=== PATIENT | male | born 1950 | race Caucasian/White ===

== ENCOUNTER → 2017-07-08 | Outpatient (CLI) | payer MEDICARE, OTHER ==
[~2017-07-08] VITALS: Ht 185.4 cm; Wt 108.9 kg
[~2017-07-08] MED LIST: ASP81CT GT; ASP81CT PO; ASPI-892 PO; CATHETER FLUSH 10 ML SYR IV PRN; FAMO40TA39 PO; NF-ESOM40C PO; PANT40TA PO; REGADENOSON 0.4 MG/5 ML SYR (LEXISCAN) IV ONE; SMV20T PO; SUCR1TAB36 PO
[2017-07-08 08:49] VITALS: BP 138/78
== END ==
LOC: CARD 07:21
PROVIDERS: ATTEND Internal Medicine Cardiovascular Disease
DX: I25.10 Atherosclerotic heart disease of native coronary artery without angina pectoris (principal); I65.23 Occlusion and stenosis of bilateral carotid arteries; E78.4 Other hyperlipidemia; R06.09 Other forms of dyspnea; Z72.0 Tobacco use
CPT/HCPCS: 78452; 93017

== ENCOUNTER 2018-01-14 05:33 | Outpatient (CLI) | payer MEDICARE, OTHER ==
[~2018-01-14] VITALS: Ht 193 cm; Wt 107.0 kg
[~2018-01-14 05:33] MED LIST changes: -CATHETER FLUSH 10 ML SYR IV PRN; -REGADENOSON 0.4 MG/5 ML SYR (LEXISCAN) IV ONE
[2018-01-14] MEDS ORDERED: ASPI-586 PO (14:55)
[2018-01-14] MEDS ORDERED: PANT40TA3 PO (14:55)
[2018-01-14] MEDS ORDERED: SIMV20TA3 PO (14:55)
[2018-01-14] MEDS ORDERED: FAMO20TA3 PO (14:55)
== END 2018-01-14 14:57 ==
LOC: PREOP 05:33
PROVIDERS: ATTEND Surgery
DX: Z01.818 Encounter for other preprocedural examination (principal)

== ENCOUNTER 2018-01-19 08:48 | Day surgery (SDC) | payer MEDICARE, OTHER ==
[~2018-01-19] VITALS: Ht 193 cm; Wt 107.0 kg
[~2018-01-19 08:48] MED LIST changes: +ASPI-586 PO; +FAMO20TA3 PO; +PANT40TA3 PO; +SIMV20TA3 PO
--- OUTSIDE RECORDS SUMMARY | 2018-01-19 08:56 | XMS REPORT | Continuity of Care Document ---
Author Author [facility] Organization [facility] Address Unknown Phone Unavailable Allergies Active Description Code Type Severity Reaction Onset Reported/Identified Relationship to Patient Clinical Status Yes NO KNOWN DRUG ALLERGIES UNKNOWN NO KNOWN DRUG ALLERG Yes atenolol [id number] Drug Allergy Unknown N/A 02/05/2009 Yes guaifenesin [id number] Drug Allergy Unknown N/A 02/05/2009 Medications There is no data. Problems Date Dx Coded Attending Type Code Diagnosis Diagnosed By 05/24/2013 BRIAN MARIE MD, Ot 455.0 INT HEMORRHOID W/O COMPL 05/24/2013 BRIAN MARIE MD Ot 455.3 EXT HEMORRHOID W/O COMPL 05/24/2013 BRIAN MARIE MD Ot 530.11 REFLUX ESOPHAGITIS 05/24/2013 BRIAN MARIE MD Ot 535.50 UNSP GASTRITIS GASTRODUODENITIS W/O ME 05/24/2013 BRIAN MARIE MD Ot 553.3 DIAPHRAGMATIC HERNIA 05/24/2013 BRIAN MARIE MD Ot 562.10 DIVERTICULOSIS COLON (W/O MENT OF HEMORR 05/24/2013 BRIAN MARIE MD Ot V76.51 SCREEN MAL NEOP-COLON 09/13/2014 MATT KEARNS FACC, DELFINO FACP CCDS Ot 272.4 HYPERLIPIDEMIA NEC/NOS 09/13/2014 MATT KEARNS FACC, ALI FACP CCDS Ot 305.1 TOBACCO USE DISORDER 09/13/2014 MATT KEARNS FACC, DELFINO FACP CCDS Ot 414.01 CORONARY ATHEROSCLEROSIS OF [place] CORON 09/13/2014 MATT KEARNS FACC, DELFINO FACP CCDS Ot 455.6 HEMORRHOIDS NOS 09/13/2014 MATT KEARNS FACC, DELFINO FACP CCDS Ot 530.10 ESOPHAGITIS NOS 09/13/2014 MATT KEARNS FACC, DELFINO FACP CCDS Ot 530.81 ESOPHAGEAL REFLUX 09/13/2014 MATT KEARNS FACC, ALI FACP CCDS Ot 786.59 CHEST PAIN NEC 12/02/2015 MATT KEARNS FACC, ALI FACP CCDS Ot E78.4 OTHER HYPERLIPIDEMIA 12/02/2015 MATT KEARNS FACC, ALI FACP CCDS Ot I25.10 ATHSCL HEART DISEASE OF [place] CORONARY 12/02/2015 MATT KEARNS FACC, ALI FACP CCDS Ot I65.23 OCCLUSION AND STENOSIS OF [place] 12/02/2015 MATT KEARNS FACC, ALI FACP CCDS Ot Z72.0 TOBACCO USE 12/18/2015 MATT KEARNS FACC, ALI FACP CCDS Ot E78.4 OTHER HYPERLIPIDEMIA 12/18/2015 MATT KEARNS FACC, ALI FACP CCDS Ot I25.10 ATHSCL HEART DISEASE OF [place] CORONARY 12/18/2015 MATT KEARNS FACC, ALI FACP CCDS Ot I65.23 OCCLUSION AND STENOSIS OF [place] 12/18/2015 MATT KEARNS FACC, ALI FACP CCDS Ot Z72.0 TOBACCO USE 01/08/2016 MATT KEARNS FACC, ALI FACP CCDS Ot E78.4 OTHER HYPERLIPIDEMIA 01/08/2016 MATT KEARNS FACC, ALI FACP CCDS Ot I25.10 ATHSCL HEART DISEASE OF [place] CORONARY 01/08/2016 MATT KEARNS FAC, ALI FACP CCDS Ot I65.23 OCCLUSION AND STENOSIS OF [place] 01/08/2016 MATT BLACKWOOD, ALI FACP CCDS Ot Z72.0 TOBACCO USE 02/29/2016 GEORGINA LAUGHLIN DO Ot K21.9 GASTRO-ESOPHAGEAL REFLUX DISEASE WITHOUT 02/29/2016 GEORGINA LAUGHLIN DO Ot R07.89 OTHER CHEST PAIN 02/29/2016 GEORGINA LAUGHLIN DO Ot R10.13 EPIGASTRIC PAIN 03/02/2016 GEORGINA LAUGHLIN DO Ot K21.9 GASTRO-ESOPHAGEAL REFLUX DISEASE WITHOUT 03/02/2016 GEORGINA LAUGHLIN DO Ot R07.89 OTHER CHEST PAIN 03/02/2016 GEORGINA LAUGHLIN DO Ot R10.13 EPIGASTRIC PAIN 03/02/2016 GEORGINA LAUGHLIN DO Ot K21.9 GASTRO-ESOPHAGEAL REFLUX DISEASE WITHOUT 03/02/2016 GEORGINA LAUGHLIN DO Ot R07.89 OTHER CHEST PAIN 03/02/2016 GEORGINA LAUGHLIN DO Ot R10.13 EPIGASTRIC PAIN 07/08/2017 MATT MD FACC, ALI FACP CCDS Ot E78.4 OTHER HYPERLIPIDEMIA 07/08/2017 MATT KEARNS FACC, ALI FACP CCDS Ot I25.10 ATHSCL HEART DISEASE OF [place] CORONARY 07/08/2017 MATT KEARNS FACC, ALI FACP CCDS Ot I65.23 OCCLUSION AND STENOSIS OF [place] 07/08/2017 MATT KEARNS FACC, ALI FACP CCDS Ot Z72.0 TOBACCO USE 07/09/2017 MATT KEARNS FACC, ALI FACP CCDS Ot E78.4 OTHER HYPERLIPIDEMIA 07/09/2017 MATT KEARNS FACC, ALI FACP CCDS Ot I25.10 ATHSCL HEART DISEASE OF [place] CORONARY 07/09/2017 MATT KEARNS FACC, ALI FACP CCDS Ot I65.23 OCCLUSION AND STENOSIS OF [place] 07/09/2017 MATT KEARNS FACC, ALI FACP CCDS Ot R06.09 OTHER FORMS OF DYSPNEA 07/09/2017 MATT KEARNS FACC, ALI FACP CCDS Ot Z72.0 TOBACCO USE 07/29/[address] [facility], ALI FACP CCDS Ot E78.4 OTHER HYPERLIPIDEMIA 07/29/[address] [facility], ALI FACP CCDS Ot I25.10 ATHSCL HEART DISEASE OF [place] CORONARY 07/29/2017 MATT KEARNS FAC, ALI FACP CCDS Ot I65.23 OCCLUSION AND STENOSIS OF [place] 07/29/2017 MATT KEARNS FAC, ALI FACP CCDS Ot R06.09 OTHER FORMS OF DYSPNEA 07/29/2017 MATT KEARNS FAC, ALI FACP CCDS Ot Z72.0 TOBACCO USE 08/26/2017 MATT BLACKWOOD, ALI FACP CCDS Ot E78.4 OTHER HYPERLIPIDEMIA 08/26/[address] [facility], ALI FACP CCDS Ot I25.10 ATHSCL HEART DISEASE OF [place] CORONARY 08/26/[address] [facility], ALI FACP CCDS Ot I65.23 OCCLUSION AND STENOSIS OF [place] 08/26/[address] [facility], ALI FACP CCDS Ot R06.09 OTHER FORMS OF DYSPNEA 08/26/2017 MATT KEARNS FACC, ALI FACP CCDS Ot Z72.0 TOBACCO USE Procedures There is no data. Results There is no data. Encounters ACCT No. Visit Date/Time Discharge Status Pt. Type Provider Facility Loc./Unit Complaint [id number] 07/08/2017 07:21:00 07/08/2017 23:59:59 CLS Outpatient MATT KEARNS FACC, ALI FACP CCDS [facility] CARD WENDY, R06.09 [id number] 02/28/2016 23:11:00 02/29/2016 00:40:00 DIS Emergency GEORGINA LAUGHLIN DO [facility] ER CHEST PAIN [id number] 11/28/2015 07:44:00 11/28/2015 23:59:59 CLS Outpatient MATT KEARNS FACC, ALI FACP CCDS [facility] CARD CAD,HPL, [id number] 09/13/2014 04:10:00 09/13/2014 12:00:00 DIS Inpatient MATT KEARNS FACC, ALI FACP CCDS [facility] CSD CHEST PAIN [id number] 05/24/2013 08:50:00 05/24/2013 12:20:00 DIS Outpatient BRIAN MARIE MD [facility] SCREENING; HX BARRETTS [id number] 05/18/2013 07:16:00 05/18/2013 23:59:59 CLS Outpatient [id number] 09/15/2014 17:18:37 ACT Document Registration [id number] 07/07/2017 00:00:00 07/07/2017 23:59:00 DIS Outpatient Eveline Berry
[2018-01-19] MEDS ORDERED: NS IV 500 ML 500 ML IV PRN (09:28)
[2018-01-19] MEDS ORDERED: FLUMAZENIL (ROMAZICON) 0.1 MG/ML 5 ML VIAL INJ PRN (09:30)
[2018-01-19] MEDS ORDERED: HURRICAINE EXT TUBE (BENZOCAINE) XX PRN (09:30)
[2018-01-19] MEDS ORDERED: LIDOCAINE JELLY 2% (XYLOCAINE) 5 ML TUBE MM PRN (09:30)
[2018-01-19] MEDS ORDERED: NALOXONE 0.4 MG/ML 1 ML (NARCAN) VIAL IVP PRN (09:30)
[2018-01-19] MEDS ORDERED: NS IV 500 ML 500 ML ONE (09:45)
[2018-01-19 09:55] VITALS: BP 129/74
[2018-01-19] MEDS ORDERED: fentaNYL INJECTION 100 MCG/2 ML AMP ONE (10:14)
[2018-01-19] MEDS ORDERED: MIDAZOLAM 2 MG/2 ML (VERSED) VIAL ONE ×3 (10:14)
[2018-01-19] MEDS ORDERED: LIDOCAINE JELLY 2% (XYLOCAINE) 5 ML TUBE ONE (10:14)
[2018-01-19] MEDS ORDERED: HURRICAINE EXT TUBE (BENZOCAINE) ONE (10:14)
[2018-01-19] MEDS: fentaNYL INJECTION 100 MCG/2 ML AMP IVP PRN ×2 (10:43→10:50)
[2018-01-19] MEDS: MIDAZOLAM 2 MG/2 ML (VERSED) VIAL IVP PRN ×2 (10:44→10:51)
--- NOTE | 2018-01-19 10:51 | Conscious Sedation/ASA ---
Conscious Sedation Pre-Proced Time Reviewed: 10:00 ASA Class: 2 Airway Mallampati Classification: ([place] appropriate class) I. II. III, IV Lungs Heart ASA score ASA 1: a normal healthy patient ASA 2: a patient with a mild systemic disease (mid diabetes, controlled hypertension, obesity ASA 3: a patient with a severe systemic disease that limits activity (angina , COPD, prior Myocardial infarction) ASA 4: a patient with an incapacitating disease that is a constant threat to life (CHF, renal failure) ASA 5: a moribund patient not expected to survive 24 hrs. (ruptured aneurysm) ASA 6: a declared brain patient whose organs are being harvested. For emergent operations, add the letter E after the classification Grade 2 Sedation Plan: Analgesia, Amnesia, Plan communicated to team members, Discussed options with patient/fam, Discussed risks with patient/fam Note The patient is an appropriate candidate to undergo the planned procedure, sedation, and anesthesia. The patient immediately re-assessed prior to indication. BRIAN MARIE MD Jan 19, 2018 10:51 am
--- NOTE | 2018-01-19 10:52 | Progress Note-Pre Operative ---
Pre-Operative Progress Note H&P Reviewed The H&P was reviewed, patient examined and no changes noted. Date Seen by Provider: Jan 19, 2018 Time Seen by Provider: 10:00 Date H&P Reviewed: Jan 19, 2018 Time H&P Reviewed: 10:00 Pre-Operative Diagnosis: BRIAN Morejon MD Jan 19, 2018 10:52 am
[2018-01-19] MEDS ORDERED: morphine INJ 10 MG/ML 1ML (SYR OR VIAL) IV PRN (11:00)
[2018-01-19] MEDS ORDERED: ACETAMINOPHEN 325 MG TABLET/CAPLET (TYLENOL) PO PRN (11:00)
[2018-01-19] MEDS ORDERED: HYDROcodone/APAP 5 MG/325 MG (LORTAB) TAB PO PRN (11:00)
[2018-01-19] MEDS ORDERED: ONDANSETRON 4 MG/2 ML (SDV) Z0FRAN IV PRN (11:00)
[2018-01-19 11:35] VITALS: BP 127/68
--- NOTE | 2018-01-19 11:42 | Progress Note-Post Operative ---
Post-Operative Progess Note Surgeon (s)/Car Wash Manager (s) Surgeon BRIAN MARIE MD Car Wash Manager: none Pre-Operative Diagnosis hx [place] Post-Operative Diagnosis reflux esophagitis(class B), small HH(1.5-2cm), moderate gastritis. Procedure & Operative Findings Date of Procedure 01/19/18 Procedure Performed/Findings EGD with bx Anesthesia Type CS Estimated Blood Loss Estimated blood loss (mL): minimal Specimens/Packing Specimens Removed antrum, GE jxn BRIAN MARIE MD Jan 19, 2018 11:42 am
--- NOTE | 2018-01-19 11:44 | Discharge Inst-Surgical ---
D/C Lap Instructions-CYNTHIA Will call for Follow Up Activity as tolerated High Fiber Diet 25g or more per day Avoid Alcohol, Caffeine, Spicy [place] and Acid foods. Drink 64 fluid oz or more of fluids per day. Symptoms to Report: Fever over 101 degree F, Nausea/Vomiting If any problems/questions: Contact your physician or go to Emergency Room BRIAN MARIE MD Jan 19, 2018 11:44 am
[2018-01-19 12:00] VITALS: BP 123/64
[2018-01-19 12:05] VITALS: BP 123/64
--- NOTE | 2018-01-19 17:46 | OPERATIVE REPORT ---
DATE OF SERVICE: 01/19/2018 ATTENDING PRIMARY CARE PHYSICIAN: Dr. Berry. PREOPERATIVE DIAGNOSIS: History of Miles's esophagus. POSTOPERATIVE DIAGNOSES: Reflux esophagitis class B, small hiatal hernia approximately 1.5 cm in size. Moderate gastritis. PROCEDURE: EGD with biopsy. SURGEON: Brian Marie MD ANESTHESIA: Conscious sedation. ESTIMATED BLOOD LOSS: Minimal. FINDINGS: Reflux esophagitis class B, small hiatal hernia approximately 1.5 cm in size, mild to moderate gastritis. No formal ulcers, polyps or any neoplasms. Pylorus and duodenum appeared normal. DISPOSITION: The patient tolerated the procedure well. INDICATIONS: The patient is a 67-year-old male with history of Miles's esophagus. In 2012, he underwent an EGD and colonoscopy with findings of reflux esophagitis class B and a small to moderate size hiatal hernia approximately 2.5 cm in size. Biopsies were positive for Miles's esophagus. Since that time, he states that he has been doing well. He does have occasional episodes of epigastric discomfort; however, this is not a new problem. DESCRIPTION OF PROCEDURE: The patient was brought to the endoscopy suite, laid in the left lateral decubitus position. After adequate IV pain and sedative medications and conscious sedation anesthesia, the mouthpiece was applied. The endoscope was placed in the mouth, visualizing the pharynx and hypopharyngeal region. Vocal cords, epiglottis and vallecula identified and appeared to be normal. The endoscope was then intubated into the esophageal opening and esophagus insufflated. The endoscope was then advanced through the first, second and third portion of the esophagus at the level of the GE junction, a reflux esophagitis class B identified. There were no ulcers or strictures identified in this region. A biopsy was taken with forceps with visualization of good hemostasis. The endoscope was then advanced into the stomach and the endoscope retroflexed, visualizing a small hiatal hernia approximately 1.5 to 2 cm in size. There was some mild to moderate gastritis. No formal ulcerations, polyps or any neoplasms identified. A biopsy was taken of the antrum with forceps with visualization of good hemostasis. The endoscope was then advanced to the pylorus into the first and second portion of duodenum, which appeared normal with no distal obstructions. The endoscope was then slowly withdrawn while taking a second look and suctioning residual air with no additional findings. The patient tolerated the procedure well. We will have him continue with medical management with the necessary lifestyle and diet accommodation including small and more frequent meals, avoiding to eating at night as well as head elevation while lying supine. He also has significant risk factors including chewing tobacco, which we will recommend discontinuing. We will await the biopsy results. Job ID: [id number] DocumentID: [id number] Dictated Date: 01/19/2018 11:29:54 Fitness And Wellness Instructor Date: 01/19/2018 17:45:42 Dictated By: BRIAN MARIE MD MTDD
== END 2018-01-19 12:05 | disposition home or self-care (01) ==
LOC: ENDO 08:48
PROVIDERS: ATTEND Surgery
DX: K21.0 Gastro-esophageal reflux disease with esophagitis (principal); K44.9 Diaphragmatic hernia without obstruction or gangrene; K29.70 Gastritis, unspecified, without bleeding; E78.00 Pure hypercholesterolemia, unspecified; I25.10 Atherosclerotic heart disease of native coronary artery without angina pectoris; Z77.098 Contact with and (suspected) exposure to other hazardous, chiefly nonmedicinal, chemicals
CPT/HCPCS: 88305

== ENCOUNTER 2018-05-25 06:30 | Outpatient (CLI) | payer MEDICARE, OTHER ==
[~2018-05-25] VITALS: Ht 190.5 cm; Wt 106.6 kg
== END 2018-05-25 14:59 | disposition home or self-care (01) ==
LOC: PREOP 06:30
PROVIDERS: ATTEND Specialist
DX: Z01.818 Encounter for other preprocedural examination (principal)

== ENCOUNTER 2018-05-27 07:46 | Day surgery (SDC) | payer MEDICARE, OTHER ==
[~2018-05-27] VITALS: Ht 190.5 cm; Wt 106.6 kg
--- OUTSIDE RECORDS SUMMARY | 2018-05-27 07:52 | XMS REPORT | Continuity of Care Document ---
Author Author [facility] Organization [facility] Address Unknown Phone Unavailable Allergies Active Description Code Type Severity Reaction Onset Reported/Identified Relationship to Patient Clinical Status Yes NO KNOWN DRUG ALLERGIES UNKNOWN NO KNOWN DRUG ALLERG Yes atenolol [id number] Drug Allergy Unknown N/A 02/05/2009 Yes guaifenesin [id number] Drug Allergy Unknown N/A 02/05/2009 Medications There [...] FACP CCDS Ot 414.01 CORONARY ATHEROSCLEROSIS OF [place] CORON 09/13/2014 MATT KEARNS FACC, DELFINO FACP [...] CCDS Ot I25.10 ATHSCL HEART DISEASE OF [place] CORONARY 12/02/2015 MATT KEARNS FACC, ALI FACP CCDS Ot I65.23 OCCLUSION AND STENOSIS OF [place] 12/02/2015 MATT KEARNS FACC, ALI FACP CCDS Ot Z72.0 TOBACCO USE 12/18/2015 MATT KEARNS FACC, ALI FACP CCDS Ot E78.4 OTHER HYPERLIPIDEMIA 12/18/2015 MATT KEARNS FACC, ALI FACP CCDS Ot I25.10 ATHSCL HEART DISEASE OF [place] CORONARY 12/18/2015 MATT KEARNS FACC, ALI FACP CCDS Ot I65.23 OCCLUSION AND STENOSIS OF [place] 12/18/2015 MATT KEARNS FACC, ALI FACP CCDS Ot Z72.0 TOBACCO USE 01/08/2016 MATT KEARNS FACC, ALI FACP CCDS Ot E78.4 OTHER HYPERLIPIDEMIA 01/08/2016 MATT KEARNS FACC, ALI FACP CCDS Ot I25.10 ATHSCL HEART DISEASE OF [place] CORONARY 01/08/2016 MATT KEARNS FAC, ALI FACP [...] CCDS Ot I25.10 ATHSCL HEART DISEASE OF [place] CORONARY 07/08/2017 MATT KEARNS FACC, ALI FACP CCDS Ot I65.23 OCCLUSION AND STENOSIS OF [place] 07/08/2017 MATT KEARNS FACC, ALI FACP CCDS Ot Z72.0 TOBACCO USE 07/09/2017 MATT KEARNS FACC, ALI FACP CCDS Ot E78.4 OTHER HYPERLIPIDEMIA 07/09/2017 MATT KEARNS FACC, ALI FACP CCDS Ot I25.10 ATHSCL HEART DISEASE OF [place] CORONARY 07/09/2017 MATT KEARNS FACC, ALI FACP CCDS Ot I65.23 OCCLUSION AND STENOSIS OF [place] 07/09/2017 MATT KEARNS FACC, ALI FACP CCDS Ot R06.09 OTHER FORMS OF DYSPNEA 07/09/2017 MATT KEARNS FACC, ALI FACP CCDS Ot Z72.0 TOBACCO USE 07/29/2017 MATT KEARNS FACC, ALI FACP CCDS Ot E78.4 OTHER HYPERLIPIDEMIA 07/29/2017 MATT KEARNS FACC, ALI FACP CCDS Ot I25.10 ATHSCL HEART DISEASE OF [place] CORONARY 07/29/2017 MATT KEARNS FACC, ALI FACP CCDS Ot I65.23 OCCLUSION AND STENOSIS OF [place] 07/29/2017 MATT KEARNS FACC, ALI FACP CCDS Ot R06.09 OTHER FORMS OF DYSPNEA 07/29/2017 MATT KEARNS FACC, ALI FACP CCDS Ot Z72.0 TOBACCO USE 08/26/2017 MATT KEARNS FACC, ALI FACP CCDS Ot E78.4 OTHER HYPERLIPIDEMIA 08/26/2017 MATT BLACKWOODC, ALI FACP CCDS Ot I25.10 ATHSCL HEART DISEASE OF [place] CORONARY 08/26/2017 MATT KEARNS FACC, ALI FACP CCDS Ot I65.23 OCCLUSION AND STENOSIS OF [place] 08/26/2017 MATT KEARNS FACC, ALI FACP CCDS Ot R06.09 OTHER FORMS OF DYSPNEA 08/26/2017 MATT KEARNS FACC, ALI FACP CCDS Ot Z72.0 TOBACCO USE 01/17/2018 MATT KEARNS FACC, ALI FACP CCDS Ot E78.4 OTHER HYPERLIPIDEMIA 01/17/2018 MATT BLACKWOODC, ALI FACP CCDS Ot I25.10 ATHSCL HEART DISEASE OF [place] CORONARY 01/17/2018 MATT KEARNS FACC, ALI FACP CCDS Ot I65.23 OCCLUSION AND STENOSIS OF [place] 01/17/2018 MATT KEARNS FACC, ALI FACP CCDS Ot Z72.0 TOBACCO USE 01/17/2018 MATT KEARNS FACC, ALI FACP CCDS Ot E78.4 OTHER HYPERLIPIDEMIA 01/17/2018 MATT KEARNS FACC, ALI FACP CCDS Ot I25.10 ATHSCL HEART DISEASE OF [place] CORONARY 01/17/2018 MATT KEARNS FAC, ALI FACP CCDS Ot I65.23 OCCLUSION AND STENOSIS OF [place] 01/17/2018 MATT KEARNS FAC, ALI FACP CCDS Ot R06.09 OTHER FORMS OF DYSPNEA 01/17/2018 MATT KEARNS FAC, ALI FACP CCDS Ot Z72.0 TOBACCO USE 01/17/2018 BRIAN MARIE MD, Ot Z01.818 ENCOUNTER FOR OTHER PREPROCEDURAL EXAMIN 01/19/2018 BRIAN MARIE MD Ot E78.00 PURE HYPERCHOLESTEROLEMIA, UNSPECIFIED 01/19/2018 BRIAN MARIE MD, Ot I25.10 ATHSCL HEART DISEASE OF [place] CORONARY 01/19/2018 BRIAN MARIE MD, Ot K21.0 GASTRO-ESOPHAGEAL REFLUX DISEASE WITH ES 01/19/2018 BRIAN MARIE MD, Ot K29.70 GASTRITIS, UNSPECIFIED, WITHOUT BLEEDING 01/19/2018 BRIAN MARIE MD, Ot K44.9 DIAPHRAGMATIC HERNIA WITHOUT OBSTRUCTION 01/19/2018 BRIAN MARIE MD, Ot Z77.098 CONTACT W AND EXPSR TO OTH HAZARD, CHIEF 01/21/2018 BRIAN MARIE MD, Ot E78.00 PURE HYPERCHOLESTEROLEMIA, UNSPECIFIED 01/21/2018 BRIAN MARIE MD, Ot I25.10 ATHSCL HEART DISEASE OF [place] CORONARY 01/21/2018 BRIAN MARIE MD, Ot K21.0 GASTRO-ESOPHAGEAL REFLUX DISEASE WITH ES 01/21/2018 BRIAN MARIE MD, Ot K29.70 GASTRITIS, UNSPECIFIED, WITHOUT BLEEDING 01/21/2018 BRIAN MARIE MD, Ot K44.9 DIAPHRAGMATIC HERNIA WITHOUT OBSTRUCTION 01/21/2018 BRIAN MARIE MD, Ot Z77.098 CONTACT W AND EXPSR TO [facility] [place], CHIEF Procedures There is no data. Results There is no data. Encounters ACCT No. Visit Date/Time Discharge Status Pt. Type Provider Facility Loc./Unit Complaint [id number] 01/19/2018 08:48:00 01/19/2018 12:05:00 DIS Outpatient BRIAN MARIE MD [facility] ENDO HX SINGLETON'S [id number] 01/14/2018 05:33:00 01/14/2018 14:57:00 DIS Outpatient BRIAN MARIE MD [facility] PREOP EGD [id number] 07/08/2017 07:21:00 07/08/2017 23:59:59 CLS Outpatient MATT KEARNS FACC, ALI FACP CCDS [facility] CARD NGUYEN, R06.09 [id number] 02/28/2016 23:11:00 02/29/2016 00:40:00 DIS Emergency GEORGINA LAUGHLIN DO [facility] ER CHEST PAIN [id number] 11/28/2015 07:44:00 11/28/2015 23:59:59 CLS Outpatient MATT KEARNS FACC, ALI FACP CCDS [facility] CARD CAD,HPL, [id number] 09/13/2014 04:10:00 09/13/2014 12:00:00 DIS Inpatient MATT KEARNS FACC, ALI FACP CCDS [facility] CSD CHEST PAIN [id number] 05/24/2013 08:50:00 05/24/2013 12:20:00 DIS [facility] HX [place] [id number] 05/18/2013 07:16:00 05/18/2013 23:59:59 CLS Outpatient [id number] 06/07/2018 09:00:00 PEN Preadmit RASTA CARRILLO MD [facility] CATARACT RIGHT EYE [id number] 05/27/2018 09:30:00 PEN Preadmit RSATA CARRILLO MD [facility] CATARACT LEFT [id number] 09/15/2014 17:18:37 ACT Document Registration [id number] 07/07/2017 00:00:00 07/07/2017 23:59:00 DIS Outpatient Eveline Berry
[2018-05-27] MEDS ORDERED: LIDOCAINE PF 1% 2 ML AMP IR PRN (08:00)
[2018-05-27] MEDS ORDERED: POVIDONE (BETADINE) OPHTH SOLN 5% 30 ML OP ONE (08:00)
[2018-05-27] MEDS ORDERED: BSS 15 ML IR PRN (08:00)
[2018-05-27] MEDS ORDERED: MOXIFLOXACIN OPHTH SOLN 5 MG/ML 0.3 ML SYRINGE OP ONE (08:00)
[2018-05-27] MEDS ORDERED: TIMOLOL MALEATE 0.5% 5 ML (TIMOPTIC) BTL OU PRN (08:00)
[2018-05-27] MEDS ORDERED: EPINEPHrine INJECTION 1 MG/ML AMP INJ ONE (08:00)
[2018-05-27] MEDS: TETRACAINE 0.5% OPHTH SOLN 4 ML BTL (SINGLE DOSE ONLY) OU PRN ×4 (08:06→08:22)
[2018-05-27 08:09] VITALS: BP 124/63
[2018-05-27] MEDS: CYCLOPENTOLATE 1% (CYCLOGYL) 2 ML DROPS OP SCH ×3 (08:13→08:22)
[2018-05-27] MEDS: PHENYLEPHRINE 10% OPHTH (NEO-SYN) 5 ML BTL OU SCH ×3 (08:13→08:22)
[2018-05-27] MEDS ORDERED: MIDAZOLAM 2 MG/2 ML (VERSED) VIAL ONE (08:28)
--- NOTE | 2018-05-27 08:46 | Ophthalmologist Pre-Op Note ---
Pre-Operative Progress Note H&P Reviewed The H&P was reviewed, patient examined and no changes noted. Date H&P Reviewed: May 27, 2018 Time H&P Reviewed: 08:46 Pre-Op Dx Cataract, Left Eye RASTA CARRILLO MD May 27, 2018 08:46
--- NOTE | 2018-05-27 09:10 | Ophthalmology Operative Report ---
Cataract removal/placement IOL PREOPERATIVE DIAGNOSIS: Cataract Left Eye POSTOPERATIVE DIAGNOSIS: Cataract Left Eye PROCEDURE: Cataract removal and placement of posterior chamber implant, left eye SURGEON: John Carrillo ANESTHESIA: Topical with sedation COMPLICATIONS: None ESTIMATED BLOOD LOSS: Minimal DESCRIPTION OF PROCEDURE: After proper informed consent was obtained, the patient, a 67 male, was taken to the Operating Room and the left eye was anesthetized with tetracaine. The left eye was then prepped and draped in the usual manner. A wire lid speculum was placed. A paracentesis was made at the left hand position. Preservative free lidocaine was injected into the anterior chamber followed by viscoelastic. A clear corneal incision was made in the temporal position. A capsulorrhexis was preformed and the central nuclear and cortical material were removed. The posterior capsule was polished and an Bertram 19.5 [id number] was placed into the capsular bag. The residual viscoelastic was aspirated and balanced saline solution was injected into the anterior chamber. Moxifloxacin was injected into the anterior chamber. The wound was checked and found to be water tight. The patient tolerated the procedure well without complications. JOHN CARRILLO MD May 27, 2018 09:10
[2018-05-27 09:25] VITALS: BP 139/69
[2018-05-27] MEDS ORDERED: acetaZOLAMIDE ER 500 MG CAP (DIAMOX SEQUELS) PO ONE (09:30)
--- NOTE | 2018-05-27 11:34 | Anesthesia-General Post-Op ---
MAC Patient Condition Mental Status/LOC: Same as Preop Cardiovascular: Satisfactory Nausea/Vomiting: Absent Respiratory: Satisfactory Pain: Controlled Complications: Absent Post Op Complications Complications None Follow Up Care/Instructions Patient Instructions None needed. Anesthesiology Discharge Order Discharge Order Patient is doing well, no complaints, stable vital signs, no apparent adverse anesthesia problems. No complications reported per nursing. DAVID NUNEZ CRNA May 27, 2018 11:34
== END 2018-05-27 09:25 | disposition home or self-care (01) ==
LOC: SDC 07:46
PROVIDERS: ATTEND Specialist
DX: H25.12 Age-related nuclear cataract, left eye (principal); K21.9 Gastro-esophageal reflux disease without esophagitis; F17.220 Nicotine dependence, chewing tobacco, uncomplicated; Z79.52 Long term (current) use of systemic steroids; Z79.899 Other long term (current) drug therapy; Z95.5 Presence of coronary angioplasty implant and graft

== ENCOUNTER 2018-06-03 05:34 | Outpatient (CLI) | payer MEDICARE, OTHER | END 2018-06-03 12:42 | disposition home or self-care (01) | LOC: PREOP 05:34 | PROVIDERS: ATTEND Specialist | DX: Z01.818 Encounter for other preprocedural examination (principal) ==

== ENCOUNTER 2018-06-07 07:07 | Day surgery (SDC) | payer MEDICARE, OTHER ==
[~2018-06-07] VITALS: Ht 190.5 cm; Wt 106.6 kg
--- OUTSIDE RECORDS SUMMARY | 2018-06-07 07:14 | XMS REPORT | Continuity of Care Document ---
Author Author [facility] Organization [facility] Address Unknown Phone Unavailable Allergies Active Description Code Type Severity Reaction Onset Reported/Identified Relationship to Patient Clinical Status Yes NO KNOWN DRUG ALLERGIES UNKNOWN NO KNOWN DRUG ALLERG Yes atenolol [id number] Drug Allergy Unknown N/A 02/05/2009 Yes guaifenesin [id number] Drug Allergy Unknown N/A 02/05/2009 Medications There is no data. Problems Date Dx Coded Attending Type Code Diagnosis Diagnosed By 05/24/2013 BRIAN MARIE MD, Ot 455.0 INT HEMORRHOID W/O COMPL 05/24/2013 BRIAN MARIE MD Ot 455.3 EXT HEMORRHOID W/O COMPL 05/24/2013 BRIAN MARIE MD Ot 530.11 REFLUX ESOPHAGITIS 05/24/2013 BRIAN MARIE MD Ot 535.50 UNSP GASTRITIS GASTRODUODENITIS W/O ME 05/24/2013 BRIAN MAIRE MD Ot 553.3 DIAPHRAGMATIC HERNIA 05/24/2013 BRIAN MARIE MD Ot 562.10 DIVERTICULOSIS COLON (W/O MENT OF HEMORR 05/24/2013 BRIAN MARIE MD Ot V76.51 SCREEN MAL NEOP-COLON 09/13/2014 MATT KEARNS FACC, DELFINO FACP CCDS Ot 272.4 HYPERLIPIDEMIA NEC/NOS 09/13/2014 MATT KEARNS FACC, ALI FACP CCDS Ot 305.1 TOBACCO USE DISORDER 09/13/2014 MATT KEARNS FACC, DELFINO FACP CCDS Ot 414.01 CORONARY ATHEROSCLEROSIS OF [place] CORON 09/13/2014 MATT KEARNS FACC, DELFINO FACP [...] CCDS Ot I25.10 ATHSCL HEART DISEASE OF [place] CORONARY 12/02/2015 MATT KEARNS FACC, ALI FACP CCDS Ot I65.23 OCCLUSION AND STENOSIS OF [place]IL[place]AL [place] 12/02/2015 MATT KEARNS FACC, ALI FACP CCDS Ot Z72.0 TOBACCO USE 12/18/2015 MATT KEARNS FACC, ALI FACP CCDS Ot E78.4 OTHER HYPERLIPIDEMIA 12/18/2015 MATT KEARNS FACC, ALI FACP CCDS Ot I25.10 ATHSCL HEART DISEASE OF [place] CORONARY 12/18/2015 MATT KEARNS FACC, ALI FACP CCDS Ot I65.23 OCCLUSION AND STENOSIS OF [place] 12/18/2015 MATT KEARNS FACC, ALI FACP CCDS Ot Z72.0 TOBACCO USE 01/08/2016 MATT KEARNS FACC, ALI FACP CCDS Ot E78.4 OTHER HYPERLIPIDEMIA 01/08/2016 MATT KEARNS FACC, ALI FACP CCDS Ot I25.10 ATHSCL HEART DISEASE OF [place] CORONARY 01/08/2016 MATT KEARNS FAC, ALI FACP [...] CCDS Ot I25.10 ATHSCL HEART DISEASE OF [place] CORONARY 07/08/2017 MATT KEARNS FACC, ALI FACP CCDS Ot I65.23 OCCLUSION AND STENOSIS OF [place] 07/08/2017 MATT KEARNS FACC, ALI FACP CCDS Ot Z72.0 TOBACCO USE 07/09/2017 MATT KEARNS FACC, ALI FACP CCDS Ot E78.4 OTHER HYPERLIPIDEMIA 07/09/2017 MATT KEARNS FACC, ALI FACP CCDS Ot I25.10 ATHSCL HEART DISEASE OF [place] CORONARY 07/09/2017 MATT KEARNS FACC, ALI FACP [...] CCDS Ot I25.10 ATHSCL HEART DISEASE OF [place] CORONARY 07/29/2017 MATT KEARNS FACC, ALI FACP CCDS Ot I65.23 OCCLUSION AND STENOSIS OF [place] 07/29/2017 MATT KEARNS FACC, ALI FACP CCDS Ot R06.09 OTHER FORMS OF DYSPNEA 07/29/2017 MATT KEARNS FACC, ALI FACP CCDS Ot Z72.0 TOBACCO USE 08/26/2017 MATT BLACKWOODC, ALI FACP CCDS Ot E78.4 OTHER HYPERLIPIDEMIA 08/26/2017 MATT BLACKWOODC, ALI FACP CCDS Ot I25.10 ATHSCL HEART DISEASE OF [place] CORONARY 08/26/2017 MATT BLACKWOODC, ALI FACP CCDS Ot I65.23 OCCLUSION AND STENOSIS OF [place] 08/26/2017 MATT KEARNS FACC, ALI FACP CCDS Ot R06.09 OTHER FORMS OF DYSPNEA 08/26/2017 MATT KEARNS FACC, ALI FACP CCDS Ot Z72.0 TOBACCO USE 01/14/2018 BRIAN MARIE MD Ot Z01.818 ENCOUNTER FOR OTHER PREPROCEDURAL EXAMIN 01/17/2018 MATT KEARNS FAC, ALI FACP CCDS Ot E78.4 OTHER HYPERLIPIDEMIA 01/17/2018 MATT KEARNS FAC, ALI FACP CCDS Ot I25.10 ATHSCL HEART DISEASE OF [place] CORONARY 01/17/2018 MATT KEARNS FACC, ALI FACP CCDS Ot I65.23 OCCLUSION AND STENOSIS OF [place] 01/17/2018 MATT KEARNS FACC, ALI FACP CCDS Ot Z72.0 TOBACCO USE 01/17/2018 MATT KEARNS FACC, ALI FACP CCDS Ot E78.4 OTHER HYPERLIPIDEMIA 01/17/2018 MATT KEARNS FACC, ALI FACP CCDS Ot I25.10 ATHSCL HEART DISEASE OF [place] CORONARY 01/17/2018 MATT KEARNS FACC, ALI FACP [...] MD, Ot I25.10 ATHSCL HEART DISEASE OF [place] CORONARY 01/19/2018 BRIAN MARIE MD Ot K21.0 GASTRO-ESOPHAGEAL REFLUX DISEASE WITH ES 01/19/2018 BRIAN MARIE MD Ot K29.70 GASTRITIS, UNSPECIFIED, WITHOUT BLEEDING 01/19/2018 BRIAN MARIE MD, Ot K44.9 DIAPHRAGMATIC HERNIA WITHOUT OBSTRUCTION 01/19/2018 BRIAN MARIE MD, Ot Z77.098 CONTACT W AND EXPSR TO OTH HAZARD, CHIEF 01/21/2018 BRIAN MARIE MD, Ot E78.00 PURE HYPERCHOLESTEROLEMIA, UNSPECIFIED 01/21/2018 BRIAN MARIE MD, Ot I25.10 ATHSCL HEART DISEASE OF [place] CORONARY 01/21/2018 BRIAN MARIE MD Ot K21.0 GASTRO-ESOPHAGEAL REFLUX DISEASE WITH ES 01/21/2018 BRIAN MARIE MD Ot K29.70 GASTRITIS, UNSPECIFIED, WITHOUT BLEEDING 01/21/2018 BRIAN MARIE MD, Ot K44.9 DIAPHRAGMATIC HERNIA WITHOUT OBSTRUCTION 01/21/2018 BRIAN MARIE MD Ot Z77.098 CONTACT W AND EXPSR TO OTH HAZARD, CHIEF 05/25/2018 RASTA CARRILLO MD, Ot Z01.818 ENCOUNTER FOR OTHER PREPROCEDURAL EXAMIN 05/27/2018 MATT KEARNS FACC, ALI FACP CCDS Ot E78.4 OTHER HYPERLIPIDEMIA 05/27/2018 MATT KEARNS FACC, ALI FACP CCDS Ot I25.10 ATHSCL HEART DISEASE OF [place] CORONARY 05/27/2018 MATT KEARNS FACC, ALI FACP CCDS Ot I65.23 OCCLUSION AND STENOSIS OF [place] 05/27/2018 MATT KEARNS FACC, ALI FACP CCDS Ot Z72.0 TOBACCO USE 05/27/2018 MATT KEARNS FACC, ALI FACP CCDS Ot E78.4 OTHER HYPERLIPIDEMIA 05/27/2018 MATT KEARNS FACC, ALI FACP CCDS Ot I25.10 ATHSCL HEART DISEASE OF [place] CORONARY 05/27/2018 MATT KEARNS FACC, ALI FACP CCDS Ot I65.23 OCCLUSION AND STENOSIS OF [place] 05/27/2018 MATT KEARNS FACC, ALI FACP CCDS Ot R06.09 OTHER FORMS OF DYSPNEA 05/27/2018 MATT KEARNS FACC, ALI FACP CCDS Ot Z72.0 TOBACCO USE 05/27/2018 RASTA CARRILLO MD Ot F17.220 NICOTINE DEPENDENCE, CHEWING TOBACCO, UN 05/27/2018 RASTA CARRILLO MD Ot H25.12 AGE-RELATED NUCLEAR CATARACT, LEFT EYE 05/27/2018 RASTA CARRILLO MD Ot K21.9 GASTRO-ESOPHAGEAL REFLUX DISEASE WITHOUT 05/27/2018 RASTA CARRILLO MD Ot Z79.52 OPERATIONS OFFICER (CURRENT) USE OF SYSTEMIC STER 05/27/2018 RASTA CARRILLO MD Ot Z79.899 OTHER OPERATIONS OFFICER (CURRENT) DRUG THERAPY 05/27/2018 RASTA CARRILLO MD Ot Z95.5 PRESENCE OF CORONARY ANGIOPLASTY IMPLANT 05/31/2018 RASTA CARRILLO MD Ot F17.220 NICOTINE DEPENDENCE, CHEWING TOBACCO, UN 05/31/2018 RASTA CARRILLO MD Ot H25.12 AGE-RELATED NUCLEAR CATARACT, LEFT EYE 05/31/2018 RASTA CARRILLO MD Ot K21.9 GASTRO-ESOPHAGEAL REFLUX DISEASE WITHOUT 05/31/2018 RASTA CARRILLO MD Ot Z79.52 OPERATIONS OFFICER (CURRENT) USE OF SYSTEMIC STER 05/31/2018 RASTA CARRILLO MD Ot Z79.899 OTHER OPERATIONS OFFICER (CURRENT) DRUG THERAPY 05/31/2018 RASTA CARRILLO MD, Ot Z95.5 PRESENCE OF CORONARY ANGIOPLASTY IMPLANT Procedures There is no data. Results There is no data. Encounters ACCT No. Visit Date/Time Discharge Status Pt. Type Provider Facility Loc./Unit Complaint [id number] 05/27/2018 07:46:00 05/27/2018 09:25:00 DIS Outpatient RASTA CARRILLO MD [facility] SDC CATARACT LEFT [id number] 05/25/2018 06:30:00 05/25/2018 14:59:00 DIS Outpatient RASTA CARRILLO MD [facility] PREOP CATARACT LEFT [id number] 01/19/2018 08:48:00 01/19/2018 12:05:00 DIS Outpatient BRIAN MARIE MD [facility] ENDO HX SINGLETON'S [id number] 01/14/2018 05:33:00 01/14/2018 14:57:00 DIS Outpatient BRIAN MARIE MD [facility] PREOP EGD [id number] 07/08/2017 07:21:00 07/08/2017 23:59:59 CLS Outpatient MATT KEARNS FACC, ALI FACP CCDS [facility] CARD NGUYEN, R06.09 [id number] 02/28/2016 23:11:00 02/29/2016 00:40:00 DIS Emergency GEORGINA LAUGHLIN DO [facility] ER CHEST PAIN [id number] 11/28/2015 07:44:00 11/28/2015 23:59:59 CLS Outpatient MATT KEARNS FACC, ALI JAISONP CCDS [facility] CARD CAD,HPL, [id number] 09/13/2014 04:10:00 09/13/2014 12:00:00 DIS Inpatient MATT KEARNS FACC, DELFINO SEYMOUR CCDS [facility] CSD CHEST PAIN [id number] 05/24/2013 08:50:00 05/24/2013 12:20:00 DIS Outpatient BRIAN MARIE MD [facility] SCREENING; HX BARRETTS [id number] 05/18/2013 07:16:00 05/18/2013 23:59:59 CLS Outpatient [id number] 06/07/2018 09:00:00 PEN Preadmit RASTA CARRILLO MD [facility] CATARACT RIGHT EYE [id number] 09/15/2014 17:18:37 ACT Document Registration [id number] 07/07/2017 00:00:00 07/07/2017 23:59:00 DIS Outpatient Eveline Berry
[2018-06-07 07:19] VITALS: BP 135/67
[2018-06-07] MEDS: TETRACAINE 0.5% OPHTH SOLN 4 ML BTL (SINGLE DOSE ONLY) OU PRN ×4 (07:25→07:39)
[2018-06-07] MEDS ORDERED: MOXIFLOXACIN OPHTH SOLN 5 MG/ML 0.3 ML SYRINGE OP ONE (07:30)
[2018-06-07] MEDS ORDERED: TIMOLOL MALEATE 0.5% 5 ML (TIMOPTIC) BTL OU PRN (07:30)
[2018-06-07] MEDS ORDERED: POVIDONE (BETADINE) OPHTH SOLN 5% 30 ML OP ONE (07:30)
[2018-06-07] MEDS ORDERED: BSS 15 ML IR PRN (07:30)
[2018-06-07] MEDS ORDERED: EPINEPHrine INJECTION 1 MG/ML AMP INJ ONE (07:30)
[2018-06-07] MEDS ORDERED: LIDOCAINE PF 1% 2 ML AMP IR PRN (07:30)
[2018-06-07] MEDS: CYCLOPENTOLATE 1% (CYCLOGYL) 2 ML DROPS OP SCH ×3 (07:31→07:39)
[2018-06-07] MEDS: PHENYLEPHRINE 10% OPHTH (NEO-SYN) 5 ML BTL OU SCH ×3 (07:31→07:39)
[2018-06-07] MEDS ORDERED: MIDAZOLAM 2 MG/2 ML (VERSED) VIAL ONE (08:03)
--- NOTE | 2018-06-07 08:22 | Ophthalmologist Pre-Op Note ---
Pre-Operative Progress Note H&P Reviewed The H&P was reviewed, patient examined and no changes noted. Date H&P Reviewed: Jun 07, 2018 Time H&P Reviewed: 08:22 Pre-Op Dx Cataract, Right Eye RASTA CARRILLO MD Jun 07, 2018 08:22
--- NOTE | 2018-06-07 08:44 | Ophthalmology Operative Report ---
Cataract removal/placement IOL PREOPERATIVE DIAGNOSIS: Cataract Right Eye POSTOPERATIVE DIAGNOSIS: Cataract Right Eye PROCEDURE: Cataract removal and placement of posterior chamber implant, right eye SURGEON: John Carrillo ANESTHESIA: Topical with sedation COMPLICATIONS: None ESTIMATED BLOOD LOSS: Minimal DESCRIPTION OF PROCEDURE: After proper informed consent was obtained, the patient, a 67 male, was taken to the Operating Room and the right eye was anesthetized with tetracaine. The right eye was then prepped and draped in the usual manner. A wire lid speculum was placed. A paracentesis was made at the left hand position. Preservative free lidocaine was injected into the anterior chamber followed by viscoelastic. A clear corneal incision was made in the temporal position. A capsulorrhexis was preformed and the central nuclear and cortical material were removed. The posterior capsule was polished and Bertram [id number] 20.5 IOL was placed into the capsular bag. The residual viscoelastic was aspirated and balanced saline solution was injected into the anterior chamber. Moxifloxacin was injected into the anterior chamber. The wound was checked and found to be water tight. The patient tolerated the procedure well without complications. JOHN CARRILLO MD Jun 07, 2018 08:44
[2018-06-07 08:50] VITALS: BP 110/69
[2018-06-07] MEDS ORDERED: acetaZOLAMIDE ER 500 MG CAP (DIAMOX SEQUELS) PO ONE (09:00)
== END 2018-06-07 08:50 | disposition home or self-care (01) ==
LOC: SDC 07:07
PROVIDERS: ATTEND Specialist
DX: H25.11 Age-related nuclear cataract, right eye (principal); I25.10 Atherosclerotic heart disease of native coronary artery without angina pectoris; Z95.5 Presence of coronary angioplasty implant and graft; F17.220 Nicotine dependence, chewing tobacco, uncomplicated; K21.9 Gastro-esophageal reflux disease without esophagitis; Z79.82 Long term (current) use of aspirin; Z79.899 Other long term (current) drug therapy

== ENCOUNTER 2019-07-07 10:02 | Emergency (ER) | payer MEDICARE, OTHER ==
[~2019-07-07] VITALS: Ht 193 cm; Wt 104.5 kg
[2019-07-07] MEDS ORDERED: DOXY100T2 PO (10:27)
--- NOTE | 2019-07-07 10:27 | ED Integumentary General ---
General Stated Complaint: LT ELBOW LUMP Source: patient Exam Limitations: no limitations History of Present Illness Date Seen by Provider: Jul 07, 2019 Time Seen by Provider: 10:22 Initial Comments painful red bump proximal forearm left side x2 days no known cause, no systemic symptoms Timing/Duration: just prior to arrival Severity: moderate Location: none Possible Cause: no cause identified Associated Symptoms: denies symptoms; No fever Allergies and Home Medications Allergies Coded Allergies: atenolol (Verified Allergy, Unknown, 02/05/09) guaifenesin (Verified Allergy, Unknown, 02/05/09) Home Medications Aspirin 81 Mg Tablet.dr, 81 MG PO HS, (Reported) Famotidine 20 Mg Tablet, 40 MG PO HS, (Reported) take 2 (20mg) tabs Pantoprazole Sodium 40 Mg Tablet.dr, 40 MG PO HS, (Reported) Simvastatin 20 Mg Tablet, 20 MG PO HS, (Reported) Patient Home Medication List Home Medication List Reviewed: Yes Review of Systems Review of Systems Constitutional: see HPI EENTM: see HPI Respiratory: no symptoms reported Cardiovascular: no symptoms reported Genitourinary: no symptoms reported Musculoskeletal: no symptoms reported Skin: see HPI Psychiatric/Neurological: No Symptoms Reported Endocrine: No Symptoms Reported Hematologic/Lymphatic: No Symptoms Reported Past Krquhag-Ukvstn-Zxwqkr Hx Patient Social History Type Used: Cigarettes Former Smoker, Quit: Jan 14, 2013 Recent Foreign Travel: No Contact w/Someone Who Travel: No Recent Hopitalizations: No Immunizations Up To Date Tetanus Booster (TDap): Unknown Date of Pneumonia Vaccine: May 24, 2010 Date of Influenza Vaccine: Jun 13, 2014 Seasonal Allergies Seasonal Allergies: Yes Past Medical History Coronary Stent, Gallbladder, Tonsillectomy Currently Using CPAP: No Currently Using BIPAP: No Coronary Artery Disease, High Cholesterol Reproductive Disorders: No Sexually Transmitted Disease: No HIV/AIDS: No Miles's Esophagus, Diverticulosis, Hiatal Hernia Chronic Back Pain Cataract Adverse Reaction/Blood Tranf: No Family Medical History Cardiovascular disease 19 FATHER FH: lymphoma G8 SISTER Respiratory disorder 19 FATHER Physical Exam Vital Signs Capillary Refill : General Appearance: WD/WN, no apparent distress HEENT: PERRL/EOMI, normal ENT inspection Neck: non-tender, full range of motion Respiratory: no respiratory distress, no accessory muscle use Gastrointestinal: normal bowel sounds, non tender Extremities: normal range of motion, other (half dollar sized area of erythema and warmth to proximal left forearm dorsally. no central punctum, no draining or open wound to culture. ) Neurologic/Psychiatric: alert, normal mood/affect, oriented x 3 Skin: normal color, warm/dry Skin Problem Location: upper extremities Skin Problem Character: abscess Progress/Results/Core Measures Results/Orders My Orders Orders - CARLOS ALBERTO WARREN APRN Ceftriaxone For Im Use (Rocephin For Im (07/07/19 10:30) Lidocaine 1% Inj 20 Ml (Xylocaine 1% Inj (07/07/19 10:30) Departure Impression Primary Impression: Soft tissue infection Disposition: HOME, SELF-CARE Condition: Stable Departure-Patient Inst. Decision time for Depature: 10:26 Referrals: ZION ZHANG MD (PCP/Family) Primary Care Physician Patient Instructions: Cellulitis (Skin Infection), Adult (DC) Add. Discharge Instructions: 1. antibiotics as directed 2. Return to ER for any cocnerns 3. Follow up with your doctor next week Scripts Doxycycline Hyclate (Doxycycline Hyclate) 100 Mg Tablet 100 MG PO BID, #14 TAB 0 Refills Prov: CARLOS ALBERTO WARREN APRN 07/07/19 CARLOS ALBERTO WARREN APRN Jul 07, 2019 10:27 POS
[2019-07-07] MEDS ORDERED: cefTRIAXone 1,000 MG/2.86 ml vial (IM ONLY) IM SCH (10:30)
[2019-07-07] MEDS ORDERED: LIDOCAINE 1% INJ 20 ML 20 ML VIAL INJ ONE (10:30)
[2019-07-07 10:49] VITALS: BP 133/76
== END 2019-07-07 10:49 | disposition home or self-care (01) ==
LOC: EDUNIT# 10:02 → ER 10:03
DX: L08.9 Local infection of the skin and subcutaneous tissue, unspecified (principal); I25.10 Atherosclerotic heart disease of native coronary artery without angina pectoris; E78.00 Pure hypercholesterolemia, unspecified; Z87.19 Personal history of other diseases of the digestive system; Z88.8 Allergy status to other drugs, medicaments and biological substances; Z79.82 Long term (current) use of aspirin; Z87.891 Personal history of nicotine dependence; Z95.5 Presence of coronary angioplasty implant and graft; Z90.89 Acquired absence of other organs; Z82.49 Family history of ischemic heart disease and other diseases of the circulatory system; Z80.7 Family history of other malignant neoplasms of lymphoid, hematopoietic and related tissues
CPT/HCPCS: 99284

== ENCOUNTER 2019-07-12 05:40 | Outpatient (CLI) | payer MEDICARE, OTHER ==
[~2019-07-12] VITALS: Ht 193 cm; Wt 105.0 kg
[~2019-07-12 05:40] MED LIST changes: +DOXY100T2 PO
== END 2019-07-12 11:08 | disposition home or self-care (01) ==
LOC: PREOP 05:40
PROVIDERS: ATTEND Specialist
DX: Z01.818 Encounter for other preprocedural examination (principal)

== ENCOUNTER 2019-07-14 07:25 | Day surgery (SDC) | payer MEDICARE, OTHER ==
[~2019-07-14] VITALS: Ht 193 cm; Wt 105.0 kg
[~2019-07-14 07:25] MED LIST changes: +SIMV20TA26 PO; -SIMV20TA3 PO
[2019-07-14] MEDS ORDERED: TROPICAMIDE 1% OPH SOLN (MYDRIACYL) 15 ML BTL OU PRN (07:45)
[2019-07-14] MEDS ORDERED: PHENYLEPHRINE 10% OPHTH (NEO-SYN) 5 ML BTL OU PRN (07:45)
[2019-07-14 07:47] VITALS: BP 132/72
[2019-07-14] MEDS: TETRACAINE 0.5% OPHTH SOLN 4 ML BTL (SINGLE DOSE ONLY) OU PRN ×3 (07:48→08:08)
--- NOTE | 2019-07-14 08:38 | Ophthalmologist Pre-Op Note ---
Pre-Operative Progress Note H&P Reviewed The H&P was reviewed, patient examined and no changes noted. Date H&P Reviewed: Jul 14, 2019 Time H&P Reviewed: 08:38 Pre-Op Dx Secondary Cataract, Bilateral Eyes RASTA CARRILLO MD Jul 14, 2019 08:38 POS
[2019-07-14 08:45] VITALS: BP 132/72
--- NOTE | 2019-07-14 08:47 | Ophthalmology Operative Report ---
YAG Capsulotomy PREOPERATIVE DIAGNOSIS: Secondary Cataract Bilateral POSTOPERATIVE DIAGNOSIS: Secondary Cataract Bilateral PROCEDURE: YAG Capsulotomy, Bilateral SURGEON: John Carrillo ANESTHESIA: Topical anesthesia COMPLICATIONS: None ESTIMATED BLOOD LOSS: Minimal DESCRIPTION OF PROCEDURE: After proper informed consent was obtained, the patient's, a 69 male , received one drop of Tropicamide and one drop of Tetracaine in each eye. The patient was then placed at the YAG laser and using a power of [3.2 ] millijoules and bursts [16 ] right eye and [24 ] left eye were used to fashion a central capsulotomy. The patient tolerated the procedure well without complications. JOHN CARRILLO MD Jul 14, 2019 08:47 POS
--- NOTE | 2019-07-14 11:45 | Anesthesia-General Post-Op ---
MAC Patient Condition Mental Status/LOC: Same as Preop Cardiovascular: Satisfactory Nausea/Vomiting: Absent Respiratory: Satisfactory Pain: Controlled Complications: Absent Post Op Complications Complications None Follow Up Care/Instructions Patient Instructions None needed. Anesthesiology Discharge Order Discharge Order Patient is doing well, no complaints, stable vital signs, no apparent adverse anesthesia problems. No complications reported per nursing. KALYAN SHAY CRNA Jul 14, 2019 11:45 POS
[2019-08-29] MEDS ORDERED: MULT-1061 PO (07:42)
[2019-08-29] MEDS ORDERED: TURM500C4 PO (07:42)
[2019-08-29] MEDS ORDERED: CLOP75TA28 PO (07:42)
[2019-08-29] MEDS ORDERED: PRED5DRO24 OU (07:42)
[2019-08-29] MEDS ORDERED: CYCL1DRO OU (07:42)
[2019-08-29] MEDS ORDERED: CARB1DRO36 OU (07:42)
[2019-08-29] MEDS ORDERED: MELA1TAB15 PO (07:42)
[2019-08-29] MEDS ORDERED: FAMO40TA6 PO (07:44)
[2019-08-29] MEDS ORDERED: FAMO20TA3 PO (08:12)
== END 2019-07-14 08:45 | disposition home or self-care (01) ==
LOC: SDC 07:25
PROVIDERS: ATTEND Specialist
DX: H26.493 Other secondary cataract, bilateral (principal); Z88.8 Allergy status to other drugs, medicaments and biological substances; Z79.899 Other long term (current) drug therapy; Z90.49 Acquired absence of other specified parts of digestive tract; Z98.41 Cataract extraction status, right eye; Z98.42 Cataract extraction status, left eye

== ENCOUNTER 2019-12-21 13:25 | Emergency (ER) | payer MEDICARE, OTHER ==
[~2019-12-21] VITALS: Ht 190 cm; Wt 106.0 kg
[~2019-12-21 13:25] MED LIST changes: +CARB1DRO36 OU; +CLOP75TA28 PO; +CYCL1DRO OU; +FAMO40TA6 PO; +MELA1TAB15 PO; +MULT-1061 PO; +PRED5DRO24 OU; +TURM500C4 PO
--- NOTE | 2019-12-21 13:59 | ED Chest Pain ---
General Chief Complaint: Chest Pain Stated Complaint: CHEST PAIN Nursing Triage Note: PT STATES UPPER CHEST PAIN FOR A COUPLE DAYS, NOT SLEEPING WELL FOR A COUPLE WEEKS DUE TO BEING DX WITH STAGE 4 KIDNEY FAILURE AND PT HAD TO RETIRE TO HELP TAKE CARE OF HER. RECENTLY TRYING TO STOP CHEWING AND HAVE HAD A COUGH SINCE THEN, QUIT SMOKING 7 YRS AGO. Nursing Sepsis Screen: No Definite Risk Source: patient Exam Limitations: no limitations History of Present Illness Date Seen by Provider: December 21, 2019 Time Seen by Provider: 13:38 Initial Comments Patient presents ER by private conveyance from home with chief complaint of chest pain 5 out of 10 feeling like someone kicked him in the middle chest and sore. The latest episode started about 1:00 this morning. He's had shortness of breath, 4 pillow orthopnea and follows with Dr. Berry and Dr. Velez. He has a history of stents. He is on aspirin which she took last night. He did a Benadryl last night but that did not help. He has some mild shortness of breath but no cough fevers or chills. No sweats or radiation of pain. Coronary catheterization by Dr. Velez August 2019 demonstrates no significant obstructive coronary disease. Patent stent in the distal right coronary artery from 2008. EF 50-55%. Allergies and Home Medications Allergies Coded Allergies: atenolol (Verified Allergy, Unknown, 02/05/09) guaifenesin (Verified Allergy, Unknown, 02/05/09) Home Medications Aspirin 81 Mg Tablet.dr, 81 MG PO HS, (Reported) Carboxymethyl/Gly/Poly80/Pf 1 Each Droperette, 1 DROP OU Q3H PRN for DRY EYES, (Reported) Clopidogrel Bisulfate 75 Mg Tablet, 75 MG PO HS, (Reported) Cyclosporine 1 Each Droperette, 1 DROP OU Q12H, (Reported) Famotidine 20 Mg Tablet, 40 MG PO HS, (Reported) TAKES 2 (20MG) TO EQUAL A 40MG Melatonin/Pyridoxine 1 Each Tablet, 1 EACH PO HS, (Reported) Multivit-Min/FA/Lycopen/Lutein 1 Each Tablet, 1 EACH PO HS, (Reported) Pantoprazole Sodium 40 Mg Tablet., 40 MG PO HS, (Reported) Pantoprazole Sodium 40 Mg Tablet., 40 MG PO DAILY Prescribed by: BART GREEN on 12/21/19 1519 Prednisolone Acetate/Pf 5 Ml Drops.susp, 1 DROP OU DAILY, (Reported) Simvastatin 20 Mg Tablet, 20 MG PO HS, (Reported) Turmeric/Turmeric Root Extract 1 Each Capsule, 1 EACH PO HS, (Reported) Patient Home Medication List Home Medication List Reviewed: Yes Review of Systems Review of Systems Constitutional: No chills, No diaphoresis, No fever, No malaise EENTM: No Blurred Vision, No Double Vision Respiratory: Cough, Orthopnea, Shortness of Air; Denies Wheezing Cardiovascular: See HPI, Chest Pain, Edema; Denies Irregular Heart Rate Gastrointestinal: Denies Constipated, Denies Diarrhea, Denies Nausea Genitourinary: Denies Burning, Denies Drainage Musculoskeletal: No back pain, No joint pain Skin: No pruritus, No rash Psychiatric/Neurological: Denies Headache, Denies Numbness All Other Systems Reviewed Negative Unless Noted: Yes Past Wrbwpqt-Cnjeia-Mvrknk Hx Patient Social History Alcohol Use: Denies Use Recreational Drug Use: No Smoking Status: Former Smoker Type Used: Smokeless Tobacco Former Smoker, Quit: Jan 14, 2013 Recent Foreign Travel: No Contact w/Someone Who Travel: No Recent Infectious Disease Expo: No Recent Hopitalizations: No Immunizations Up To Date Tetanus Booster (TDap): Less than 5yrs Date of Pneumonia Vaccine: May 18, 2018 Date of Influenza Vaccine: May 24, 2019 Seasonal Allergies Seasonal Allergies: Yes Past Medical History Surgeries: Yes (BILAT KNEE SCOPE, EYE SURGERY) Coronary Stent, Gallbladder, Tonsillectomy Respiratory: No Currently Using CPAP: No Currently Using BIPAP: No 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) Coronary Artery Disease, High Cholesterol Neurological: No Reproductive Disorders: No Sexually Transmitted Disease: No HIV/AIDS: No Genitourinary: No Gastrointestinal: Yes Miles's Esophagus, Diverticulosis, Hiatal Hernia Musculoskeletal: No Chronic Back Pain Endocrine: No Cataract Cancer: No Psychosocial: No Integumentary: No Blood Disorders: Yes Adverse Reaction/Blood Tranf: No Family Medical History Cardiovascular disease 19 FATHER FH: lymphoma G8 SISTER Respiratory disorder 19 FATHER Physical Exam Vital Signs Vital Signs - First Documented 12/21/19 13:36 Temp 36.4 Pulse 63 Resp 18 B/P (MAP) 147/77 (100) Pulse Ox 97 O2 Delivery Room Air Capillary Refill : Less Than 3 Seconds Height, Weight, BMI Height: 6'3.00" Weight: 235lbs. 0.0oz. 106.173715ks; 29.00 BMI Method:Stated General Appearance: WD/WN, Mild Distress HEENT: PERRL/EOMI, Pharynx Normal, Moist Mucous Membranes Neck: Full Range of Motion, Normal Inspection Respiratory: Chest Non Tender, Lungs Clear, Normal Breath Sounds, No Accessory Muscle Use, No Respiratory Distress Cardiovascular: Regular Rate, Rhythm, Normal Peripheral Pulses Gastrointestinal: Normal Bowel Sounds, No Organomegaly, Non Tender, Soft Extremity: Normal Capillary Refill, Normal Inspection, Pedal Edema (trace bilateral) Neurologic/Psychiatric: Alert, Oriented x3 Skin: Normal Color, Warm/Dry Progress/Results/Core Measures Results/Orders Lab Results Laboratory Tests Test 12/21/19 13:50 12/21/19 17:10 Range/Units White Blood Count 5.3 4.3-11.0 10^3/uL Red Blood Count 4.60 4.35-5.85 10^6/uL Hemoglobin 13.8 13.3-17.7 G/DL Hematocrit 41 40-54 % Mean Corpuscular Volume 89 80-99 FL Mean Corpuscular Hemoglobin 30 25-34 PG Mean Corpuscular Hemoglobin Concent 34 32-36 G/DL Red Cell Distribution Width 14.2 10.0-14.5 % Platelet Count 157 130-400 10^3/uL Mean Platelet Volume 9.5 7.4-10.4 FL Neutrophils (%) (Auto) 56 42-75 % Lymphocytes (%) (Auto) 29 12-44 % Monocytes (%) (Auto) 12 0-12 % Eosinophils (%) (Auto) 2 0-10 % Basophils (%) (Auto) 0 0-10 % Neutrophils # (Auto) 3.0 1.8-7.8 X 10^3 Lymphocytes # (Auto) 1.6 1.0-4.0 X 10^3 Monocytes # (Auto) 0.6 0.0-1.0 X 10^3 Eosinophils # (Auto) 0.1 0.0-0.3 10^3/uL Basophils # (Auto) 0.0 0.0-0.1 10^3/uL Prothrombin Time 13.7 12.2-14.7 SEC INR Comment 1.0 0.8-1.4 Activated Partial Thromboplast Time 31 24-35 SEC D-Dimer 0.47 0.00-0.49 UG/ML Sodium Level 143 135-145 MMOL/L Potassium Level 3.5 L 3.6-5.0 MMOL/L Chloride Level 107 98-107 MMOL/L Carbon Dioxide Level 28 21-32 MMOL/L Anion Gap 8 5-14 MMOL/L Blood Urea Nitrogen 12 7-18 MG/DL Creatinine 1.19 0.60-1.30 MG/DL Estimat Glomerular Filtration Rate > 60 BUN/Creatinine Ratio 10 Glucose Level 107 H 70-105 MG/DL Calcium Level 8.4 L 8.5-10.1 MG/DL Corrected Calcium 8.7 8.5-10.1 MG/DL Magnesium Level 2.1 1.6-2.4 MG/DL Total Bilirubin 0.5 0.1-1.0 MG/DL Aspartate Amino Transf (AST/SGOT) 23 5-34 U/L Alanine Aminotransferase (ALT/SGPT) 19 0-55 U/L Alkaline Phosphatase 44 40-136 U/L Myoglobin 37.8 10.0-92.0 NG/ML Troponin I < 0.028 < 0.028 <0.028 NG/ML B-Type Natriuretic Peptide 172.1 H <100.0 PG/ML Total Protein 6.7 6.4-8.2 GM/DL Albumin 3.6 3.2-4.5 GM/DL Lipase 49 8-78 U/L My Orders Orders - BART GREEN Continuous Ekg Monitoring (12/21/19 13:26) Ekg Tracing (12/21/19 13:26) Chest 1 View, Ap/Pa Only (12/21/19 13:26) Cbc With Automated Diff (12/21/19 13:49) Magnesium (12/21/19 13:49) Comprehensive Metabolic Panel (12/21/19 13:49) Myoglobin Serum (12/21/19 13:49) Protime With Inr (12/21/19 13:49) Partial Thromboplastin Time (12/21/19 13:49) O2 (12/21/19 13:49) Lipid Panel (12/22/19 06:00) Ed Iv/Invasive Line Start (12/21/19 13:49) Lipase (12/21/19 13:49) BNP (12/21/19 13:49) Troponin I (12/21/19 13:49) Nitroglycerin 0.4 Mg Btl 25's (Nitrostat (12/21/19 14:00) Aspirin Chewable Tablet (Baby Aspirin Ch (12/21/19 14:00) Fibrin Degradation Products (12/21/19 13:50) Pantoprazole Injection (Protonix Injecti (12/21/19 15:30) Troponin I (12/21/19 17:30) Medications Given in ED Current Medications Medications Dose Ordered Sig/Harris Route Start Time Stop Time Status Last Admin Dose Admin Aspirin 324 mg ONCE ONCE PO 12/21/19 14:00 12/21/19 14:01 DC 12/21/19 14:07 324 MG Nitroglycerin 0.4 mg UD PRN SL 12/21/19 14:00 12/21/19 14:07 0.4 MG Pantoprazole 40 mg ONCE ONCE IV 12/21/19 15:30 12/21/19 15:31 DC 12/21/19 15:39 40 MG Vital Signs/I&O 12/21/19 12/21/19 13:36 13:45 Temp 36.4 Pulse 63 Resp 18 B/P (MAP) 147/77 (100) Pulse Ox 97 O2 Delivery Room Air Room Air Blood Pressure Mean: 100 Progress Progress Note #1: Time: 13:57 Progress Note Aspirin and nitroglycerin. Labs to include BNP. Chest x-ray. Progress Note #2: Time: 15:12 Progress Note Chest pain went from a 5 on presentation to a 1/10 after a single dose of nitroglycerin. BMP is normal and chest x-ray does not show fluid backed up. He does not have clinical exam findings otherwise consistent with CHF exacerbation. He just had a clean catheter for months ago. Suspect maybe this is just stable angina. Initial ECG Impression Date: December 21, 2019 Initial ECG Impression Time: 13:24 Initial ECG Rate: 57 Initial ECG Intervals: Normal Initial ECG Impression: Normal Initial ECG Comparisson: Unchanged Comment Normal sinus rhythm without clinically relevant ST elevation or depression. Diagnostic Imaging Diagonstic Imaging: Xray Plain Films/CT/US/NM/MRI: chest (1v) Comments NAME: LILLIAN DUKES Catalina [facility] REC#: [id number] PT STATUS: REG ER : 1950 PHYSICIAN: BART GREEN MD ADMIT DATE: 12/21/19/ER Draft Date of Exam:12/21/19 CHEST 1 VIEW, AP/PA ONLY INDICATION: Upper chest pain for a couple of days. TECHNIQUE: Single view chest, 2:09 PM. CORRELATION STUDY: 02/28/2016. FINDINGS: The heart size, mediastinal configuration and pulmonary vascularity are within normal limits. Mildly prominent interstitial markings throughout both lung yuen, likely largely chronic. No consolidating infiltrate, effusion or pneumothorax. IMPRESSION: Negative for acute abnormality of the chest. Dictated on workstation # [id number] Dict: 12/21/19 1431 Trans: 12/21/19 1436 [facility] [id number] Interpreted by: DEJAH HARDY DO Electronically signed by: Reviewed: Reviewed by Me Consults : Consulting Physician: DELFINO VELEZ MD [facility] Consults Notes 1515: Discussed the case with Dr. Nunez who after reviewing the chart and the patient's situation she has a history of Miles's esophagitis and esophageal spasm may be the source of his pain. He has a negative heart catheter just a few months ago. He like the do a rule out troponin at 1800 and if it still negative and he would be fine to see him in the clinic tomorrow. Departure Impression Primary Impression: Chest pain Qualified Codes: R07.9 - Chest pain, unspecified Disposition: 01 HOME, SELF-CARE Condition: Stable Departure-Patient Inst. Decision time for Depature: 17:49 Referrals: DELFINO VELEZ MD [facility] ZION BERRY MD (PCP/Family) Primary Care Physician Patient Instructions: Chest Pain (DC) Add. Discharge Instructions: Plan to follow up tomorrow with Dr. Velez in the clinic at 1:20PM 12/22/19. If your pain comes back and I would ask you return to the ER. Protonix 40 mg daily for the next couple weeks. All discharge instructions reviewed with patient and/or family. Voiced understanding. Scripts Pantoprazole Sodium (Pantoprazole Sodium) 40 Mg Tablet.dr 40 MG PO DAILY for 14 Days, #14 TAB 0 Refills Prov: BART GREEN 12/21/19 BART GREEN December 21, 2019 13:59
[2019-12-21 14:00] LABS: BASOPHILS % (AUTO) 0 % (0-10); EOSINOPHILS # (AUTO) 0.1 10^3/uL (0.0-0.3); EOSINOPHILS % (AUTO) 2 % (0-10); HEMATOCRIT 41 % (40-54); HEMOGLOBIN 13.8 G/DL (13.3-17.7); LYMPHOCYTES # (AUTO) 1.6 X 10^3 (1.0-4.0); LYMPHOCYTES % (AUTO) 29 % (12-44); MEAN CORPUSCULAR HEMOGLOBIN 30 PG (25-34); MEAN CORPUSCULAR HGB CONC 34 G/DL (32-36); MEAN CORPUSCULAR VOLUME 89 FL (80-99); MEAN PLATELET VOLUME 9.5 FL (7.4-10.4); MONOCYTES # (AUTO) 0.6 X 10^3 (0.0-1.0); MONOCYTES % (AUTO) 12 % (0-12); NEUTROPHILS % (AUTO) 56 % (42-75); PLATELET COUNT 157 10^3/uL (130-400); RED CELL DISTRIBUTION WIDTH 14.2 % (10.0-14.5); WHITE BLOOD COUNT 5.3 10^3/uL (4.3-11.0)
[2019-12-21] MEDS ORDERED: ASPIRIN 81 MG CHEW (CHILDREN'S ASA) PO ONE (14:00)
[2019-12-21] MEDS ORDERED: NITROGLYCERIN 0.4 MG SL TABS BTL 25'S SL PRN (14:00)
[2019-12-21 14:11] LABS: ALBUMIN 3.6 GM/DL (3.2-4.5); CHLORIDE 107 MMOL/L (98-107); POTASSIUM 3.5 MMOL/L (3.6-5.0); SODIUM 143 MMOL/L (135-145)
[2019-12-21 14:13] LABS: CALCIUM 8.4 MG/DL (8.5-10.1)
[2019-12-21 14:14] LABS: GLUCOSE 107 MG/DL (70-105); TOTAL PROTEIN 6.7 GM/DL (6.4-8.2)
[2019-12-21 14:15] LABS: CARBON DIOXIDE 28 MMOL/L (21-32)
[2019-12-21 14:16] LABS: BILIRUBIN,TOTAL 0.5 MG/DL (0.1-1.0)
[2019-12-21 14:17] LABS: ALKALINE PHOSPHATASE 44 U/L (40-136); CREATININE SERUM 1.19 MG/DL (0.60-1.30); GFR ESTIMATED > 60
[2019-12-21 14:19] LABS: BUN/CREATININE RATIO 10
[2019-12-21 14:20] LABS: ALANINE AMINOTRANSFERASE 19 U/L (0-55); MAGNESIUM 2.1 MG/DL (1.6-2.4)
[2019-12-21 14:21] LABS: LIPASE 49 U/L (8-78)
--- NOTE | 2019-12-21 14:36 | Diagnostic Imaging Report ---
INDICATION: Upper chest pain for a couple of days. TECHNIQUE: Single view chest, 2:09 PM. CORRELATION STUDY: 02/28/2016. FINDINGS: The heart size, mediastinal configuration and pulmonary vascularity are within normal limits. Mildly prominent interstitial markings throughout both lung yuen, likely largely chronic. No consolidating infiltrate, effusion or pneumothorax. IMPRESSION: Negative for acute abnormality of the chest. Dictated by: Dictated on workstation # [id number]
[2019-12-21 14:47] LABS: FIBRIN DEGRADATION PRODUCTS 0.47 UG/ML (0.00-0.49); PROTHROMBIN TIME PATIENT 13.7 SEC (12.2-14.7)
[2019-12-21] MEDS ORDERED: PANT40TA3 PO (15:19)
[2019-12-21] MEDS ORDERED: PANTOPRAZOLE 40 MG (PROTONIX) VIAL IV ONE (15:30)
[2019-12-21 18:06] VITALS: BP 138/69
== END 2019-12-21 18:04 | disposition home or self-care (01) ==
LOC: EDUNIT# 13:25 → ER 13:26
DX: R07.89 Other chest pain (principal); I25.10 Atherosclerotic heart disease of native coronary artery without angina pectoris; E78.00 Pure hypercholesterolemia, unspecified; Z79.82 Long term (current) use of aspirin; Z95.5 Presence of coronary angioplasty implant and graft; Z88.8 Allergy status to other drugs, medicaments and biological substances; Z79.02 Long term (current) use of antithrombotics/antiplatelets; Z79.52 Long term (current) use of systemic steroids; Z80.7 Family history of other malignant neoplasms of lymphoid, hematopoietic and related tissues; Z87.891 Personal history of nicotine dependence
CPT/HCPCS: 36415; 71045; 80053; 83690; 83735; 83874; 83880; 84484; 85025; 85379; 85610; 85730; 93005; 96374

== ENCOUNTER 2020-08-05 10:44 | Outpatient (RCR) | payer MEDICARE, OTHER ==
[~2020-08-05 10:44] MED LIST changes: -PANT40TA3 PO; +PANT40TA52 PO
== END 2020-08-07 | disposition home or self-care (01) ==
PROVIDERS: ATTEND Nurse Practitioner Family
DX: M75.41 Impingement syndrome of right shoulder (principal); M75.111 Incomplete rotator cuff tear or rupture of right shoulder, not specified as traumatic

== ENCOUNTER 2020-08-08 10:05 | Outpatient (RCR) | payer MEDICARE, OTHER | END 2020-08-08 10:43 | disposition home or self-care (01) | PROVIDERS: ATTEND Nurse Practitioner Family | DX: M75.41 Impingement syndrome of right shoulder (principal); M75.111 Incomplete rotator cuff tear or rupture of right shoulder, not specified as traumatic ==

== ENCOUNTER → 2020-08-30 | Outpatient (CLI) | payer MEDICARE, OTHER ==
--- NOTE | 2020-08-30 08:54 | Diagnostic Imaging Report ---
CT Lung Screening INDICATION:Patient has a 50 pack-year smoking history, cessation 10 years ago, presents for low-dose baseline screening. TECHNIQUE: Noncontrast, low-dose CT imaging performed according to the lung cancer screening protocol. Auto Exposure Controls were utilize during the CT exam to meet ALARA standards for radiation dose reduction. COMPARISON: Baseline FINDINGS: No lung mass or suspicious pulmonary nodule. There is no thoracic lymphadenopathy. The aorta is normal in caliber. There are coronary arterial atherosclerotic vascular calcifications. There is no effusion or pneumothorax. The visualized upper abdomen unremarkable. IMPRESSION: No suspicious nodule LUNG-RADS CATEGORY:Category 1 MODIFIER: None OTHER SIGNIFICANT FINDINGS: Coronary atherosclerotic vascular calcifications Dictated by: Dictated on workstation # [id number]
== END ==
LOC: RAD 08:09
PROVIDERS: ATTEND Family Medicine
DX: Z12.2 Encounter for screening for malignant neoplasm of respiratory organs (principal); I25.84 Coronary atherosclerosis due to calcified coronary lesion; Z87.891 Personal history of nicotine dependence
CPT/HCPCS: 71271

== ENCOUNTER 2021-02-24 05:34 | Outpatient (RCR) | payer MEDICARE, OTHER ==
[~2021-02-24] VITALS: Ht 193 cm; Wt 106.8 kg
== END 2021-02-24 10:18 | disposition home or self-care (01) ==
LOC: PREOP 05:34
PROVIDERS: ATTEND Surgery
DX: Z01.812 Encounter for preprocedural laboratory examination (principal); Z12.11 Encounter for screening for malignant neoplasm of colon; Z20.822 Contact with and (suspected) exposure to COVID-19; Z87.19 Personal history of other diseases of the digestive system
CPT/HCPCS: 87635

== ENCOUNTER 2021-02-26 09:33 | Day surgery (SDC) | payer MEDICARE, OTHER ==
[2021-02-26] VITALS (18 sets, daily range): BP systolic 108–143; BP diastolic 59–98
--- NOTE | 2021-02-26 09:38 | Conscious Sedation/ASA ---
Conscious Sedation Pre-Proced Time 09:30 ASA Score 2 For ASA 3 and 4: Consider anesthesia and medical clearance. Also, for patients with a history of failed moderate sedation consider anesthesia. Airway Lungs Heart ASA score ASA 1: a normal healthy patient ASA 2: a patient with a mild systemic disease (mid diabetes, controlled hypertension, obesity ASA 3: a patient with a severe systemic disease that limits activity (angina, COPD, prior Myocardial infarction) ASA 4: a patient with an incapacitating disease that is a constant threat to life (CHF, renal failure) ASA 5: a moribund patient not expected to survive 24 hrs. (ruptured aneurysm) ASA 6: a declared brain- patient whose organs are being harvested. For emergent operations, add the letter E after the classification Mallampati Classification Grade 2 Sedation Plan Analgesia, Amnesia, Plan communicated to team members, Discussed options with patient/fam, Discussed risks with patient/fam The patient is an appropriate candidate to undergo the planned procedure, sedation, and anesthesia. The patient immediately re-assessed prior to indication. BRIAN MARIE MD Feb 26, 2021 09:38
--- NOTE | 2021-02-26 09:38 | Progress Note-Pre Operative ---
Pre-Operative Progress Note H&P Reviewed The H&P was reviewed, patient examined and no changes noted. Date Seen by Provider: Feb 26, 2021 Time Seen by Provider: : Date H&P Reviewed: Feb 26, 2021 Time H&P Reviewed: :30 Pre-Operative Diagnosis: hx barretts esophagus, screening o BRIAN MARIE MD Feb 26, 2021 09:38
[2021-02-26] MEDS ORDERED: NS IV 500 ML 500 ML ONE (09:39)
--- NOTE | 2021-02-26 09:39 | Discharge Inst-Surgical ---
D/C Lap Instructions-CYNTHIA Follow Up Activity as tolerated High Fiber Diet 25g or more per day Avoid Alcohol, Caffeine, Spicy [place] and Acid foods. Drink 64 fluid oz or more of fluids per day. Symptoms to Report: Fever over 101 degree F, Nausea/Vomiting If any problems/questions: Contact your physician or go to Emergency Room BRIAN MARIE MD Feb 26, 2021 09:39
[2021-02-26] MEDS ORDERED: morphine INJ 10 MG/ML 1ML (SYR OR VIAL) IVP PRN ×2 (09:45)
[2021-02-26] MEDS ORDERED: ONDANSETRON 4 MG/2 ML (SDV) Z0FRAN IVP PRN (09:45)
[2021-02-26] MEDS ORDERED: fentaNYL INJ 100 MCG/2 ML AMP IVP ONE ×2 (09:45→10:15)
[2021-02-26] MEDS ORDERED: ACETAMINOPHEN 325 MG TABLET PO PRN (09:45)
[2021-02-26] MEDS ORDERED: HURRICAINE EXT TUBE (BENZOCAINE) XX PRN ×2 (09:45→10:15)
[2021-02-26] MEDS ORDERED: LIDOCAINE JELLY 2% 6 ML SYRINGE MM PRN ×2 (09:45→10:15)
[2021-02-26] MEDS ORDERED: MIDAZOLAM 5 MG/5 ML (VERSED) VIAL IV ONE ×2 (09:45→10:15)
[2021-02-26] MEDS ORDERED: HYDROcodone/APAP 5 MG/325 MG (LORTAB) TAB PO PRN (09:45)
[2021-02-26] MEDS ORDERED: LACTATED RINGERS 1,000 ML IV STA (09:56)
[2021-02-26] MEDS ORDERED: NS IV 500 ML 500 ML IV PRN ×2 (10:15)
--- NOTE | 2021-02-26 12:43 | Progress Note-Post Operative ---
Post-Operative Progess Note Surgeon (s)/Supervisor Electronics Inspection (s) Surgeon BRIAN MARIE MD Supervisor Electronics Inspection: none Pre-Operative Diagnosis hx barretts esophagus, screening colo Post-Operative Diagnosis reflux esophagitis(stage 2-3), small HH(2cm), moderate gastritis. mild chronic stage 2 ext and int hemorrhoids. Procedure & Operative Findings Date of Procedure 02/26/21 Procedure Performed/Findings EGD with bx. colonoscopy Anesthesia Type cs Estimated Blood Loss Estimated blood loss (mL): minimal Specimens/Packing Specimens Removed ge jxn, antrum BRIAN MARIE MD Feb 26, 2021 12:43
--- NOTE | 2021-02-26 15:41 | OPERATIVE REPORT ---
DATE OF SERVICE: 02/26/2021 ATTENDING PRIMARY CARE PHYSICIAN: Dr. Eveline Berry. PREOPERATIVE DIAGNOSES: History of Miles's esophagus, screening colonoscopy. POSTOPERATIVE DIAGNOSES: Reflux esophagitis between stage II to III, small hiatal hernia approximately 2 cm in size, moderate gastritis, chronic stage II external and internal hemorrhoids. PROCEDURE: EGD with biopsy, colonoscopy. SURGEON: Brian Smiley MD. ANESTHESIA: Conscious sedation. ESTIMATED BLOOD LOSS: Minimal. FINDINGS: Reflux esophagitis between stage II to III, small hiatal hernia approximately 2 cm in size, moderate gastritis, chronic stage II external and internal hemorrhoids. DISPOSITION: The patient tolerated the procedure well. INDICATIONS: The patient is a 70-year-old male known to us. He has a history of Miles's esophagus detected in 2012. He was then seen again in 04/2020 for followup EGD; however, due to his passing away, he was unable to proceed with the endoscopies. He states that he continues to have some heartburn and reflux on occasion and is currently on Protonix daily. He states no major issues with diarrhea nor constipation as well as no red blood per rectum nor any dark tarry stools. He also does not report any family history of colon cancer. DESCRIPTION OF PROCEDURE: The patient was brought to the endoscopy suite, laid in the left lateral decubitus position. After adequate IV pain and sedative medications and conscious sedation anesthesia, the mouthpiece was applied. The endoscope was placed in the mouth, visualizing the pharynx and hypopharyngeal region. Vocal cords, epiglottis and vallecula identified and appeared to be normal. The endoscope was gently intubated into the esophageal opening and esophagus insufflated. The endoscope was then advanced through the first, second and third portion of esophagus at the level of the GE junction, a reflux esophagitis stage II identified. There were no ulcers or strictures identified in this region. A biopsy was taken with forceps with visualization of good hemostasis. The endoscope was then advanced in the stomach and endoscope retroflexed, visualizing a small type 1 sliding hiatal hernia approximately 2 cm in size. There was a moderate severity gastritis more towards the stomach antrum. No formal ulcerations, polyps, or any neoplasms. A biopsy was taken with forceps with visualization of good hemostasis. The endoscope was then advanced to the pylorus and the first and second portion of the duodenum, which appeared normal with no distal obstructions. The endoscope was then slowly withdrawn while taking a second look and suctioning of residual air with no additional findings. A digital rectal examination was performed, which revealed chronic stage II external and internal hemorrhoids, not actively edematous nor inflamed and no bleeding. Normal sphincter tone was felt and there were no palpable masses. Prostate gland was palpable and appeared normal. The endoscope was then intubated and anus and rectum gently insufflated. The endoscope was then advanced through the valves of Peterson of the rectum with no polyps or any neoplasms identified. Through the sigmoid colon, no diverticulosis identified. The endoscope was then advanced through the remainder of the descending, transverse and ascending colon to the cecum. These segments were normal. There were no polyps or any neoplasms identified throughout the colon or rectum. The endoscope was then slowly withdrawn while taking a second look and suctioning of residual air with no additional findings. The patient tolerated the procedure well. We will await the biopsy results; however, he does continue to have a significant reflux esophagitis and hiatal hernia, which is likely exacerbating his symptomatology. We will have him continue with medical management, which would incorporate small and more frequent meals, avoidance of eating at night as well as head elevation while lying supine. He also needs to proceed with tobacco cessation. If he was found to have positive Miles's esophagus, he will need a followup colonoscopy approximately 3 years. His colonoscopy for the most part was normal and we will recommend a high fiber diet with at least 30 grams of fiber daily to promote soft stools on a daily basis and if he is asymptomatic, he does not need another colonoscopy for another 10 years. Job ID: [id number] DocumentID: [id number] Dictated Date: 02/26/2021 12:02:03 Commercial Roofer Date: 02/26/2021 15:40:35 Dictated By: BRIAN SMILEY MD
== END 2021-02-26 13:00 | disposition home or self-care (01) ==
LOC: ENDO 09:33
PROVIDERS: ATTEND Surgery
DX: K64.1 Second degree hemorrhoids (principal); K21.00 Gastro-esophageal reflux disease with esophagitis, without bleeding; K29.70 Gastritis, unspecified, without bleeding; K44.9 Diaphragmatic hernia without obstruction or gangrene; E78.00 Pure hypercholesterolemia, unspecified; I25.10 Atherosclerotic heart disease of native coronary artery without angina pectoris; Z90.49 Acquired absence of other specified parts of digestive tract; Z79.899 Other long term (current) drug therapy; Z79.82 Long term (current) use of aspirin; Z87.891 Personal history of nicotine dependence
CPT/HCPCS: 88305

== ENCOUNTER → 2021-03-21 | Outpatient (CLI) | payer MEDICARE, OTHER | LOC: LABNPT 05:53 | PROVIDERS: ATTEND Orthopaedic Surgery | DX: Z20.822 Contact with and (suspected) exposure to COVID-19 (principal) | CPT/HCPCS: 87635 ==

== ENCOUNTER 2021-05-14 11:00 | Outpatient (RCR) | payer MEDICARE, OTHER | END 2021-05-14 12:00 | disposition home or self-care (01) | PROVIDERS: ATTEND Nurse Practitioner Family | DX: M25.462 Effusion, left knee (principal); R26.9 Unspecified abnormalities of gait and mobility; Z98.890 Other specified postprocedural states ==

== ENCOUNTER 2021-09-08 07:53 | Emergency (ER) | payer MEDICARE, OTHER ==
[~2021-09-08] VITALS: Ht 193 cm; Wt 111.1 kg
[2021-09-08] MEDS ORDERED: ASPIRIN 81 MG CHEW (CHILDREN'S ASA) PO ONE (08:45)
--- NOTE | 2021-09-08 08:53 | Diagnostic Imaging Report ---
INDICATION: Cough and chest wall pain. TIME OF EXAM: 8:50 AM Correlation is made with prior chest from 12/21/2019. FINDINGS: The heart size is normal. The pulmonary vascularity is unremarkable. The lungs are clear. No infiltrate, effusion or pneumothorax is detected. IMPRESSION: No acute cardiopulmonary process is detected. Dictated by: Dictated on workstation # [id number]
[2021-09-08 08:56] LABS: BASOPHILS % (AUTO) 1 % (0-10); EOSINOPHILS # (AUTO) 0.1 10^3/uL (0.0-0.3); EOSINOPHILS % (AUTO) 2 % (0-10); HEMATOCRIT 47 % (40-54); HEMOGLOBIN 16.2 g/dL (13.3-17.7); LYMPHOCYTES # (AUTO) 0.9 10^3/uL (1.0-4.0); LYMPHOCYTES % (AUTO) 15 % (12-44); MEAN CORPUSCULAR HEMOGLOBIN 30 pg (25-34); MEAN CORPUSCULAR HGB CONC 34 g/dL (32-36); MEAN CORPUSCULAR VOLUME 89 fL (80-99); MEAN PLATELET VOLUME 9.7 fL (9.0-12.2); MONOCYTES # (AUTO) 1.1 10^3/uL (0.0-1.0); MONOCYTES % (AUTO) 20 % (0-12); NEUTROPHILS # (AUTO) 3.6 10^3/uL (1.8-7.8); NEUTROPHILS % (AUTO) 62 % (42-75); PLATELET COUNT 171 10^3/uL (130-400); WHITE BLOOD COUNT 5.7 10^3/uL (4.3-11.0)
--- NOTE | 2021-09-08 08:56 | ED Cough/URI ---
General Chief Complaint: COVID19 Suspect/Confirmed Stated Complaint: HEADACHE/CHEST PAIN/COUGHING Nursing Triage Note: PT AMBULATE TO ROOM 10 WITH C/O COUGH, CHEST WALL PAIN WHEN COUGHING, AND HEADACHE SINCE WEDNESDAY. Source: patient Exam Limitations: no limitations History of Present Illness Date Seen by Provider: Sep 08, 2021 Time Seen by Provider: 08:02 Initial Comments 71-year-old male with past medical history of CAD, hypertension, hyperlipidemia, GERD coming in due to 5 days of cough, congestion, mild headache, and chest discomfort. He says the chest discomfort is more just from the coughing and does not really hurt like when he had a stent placed. Does not really feel short of breath, no abdominal pain, no nausea, vomiting, had 1 episode of loose stool, no weakness, numbness, or any other concerns. Is tolerating p.o. and taking his medicines. Tried some iegz-hri-azbwxoc Robitussin which did not really help. Had COVID vaccines x3. Allergies and Home Medications Allergies Coded Allergies: atenolol (Verified Allergy, Unknown, 02/05/09) guaifenesin (Verified Allergy, Unknown, 02/05/09) Patient Home Medication List Home Medication List Reviewed: Yes Aspirin (Aspir 81) 81 Mg Tablet.dr, 81 MG PO HS, (Reported) Entered as Reported by: DESTIN HARTMAN on 01/14/18 1455 Carboxymethyl/Gly/Poly80/Pf (Refresh Optive Cesar-3 Drops) 1 Each Droperette, 1 DROP OU Q3H PRN for DRY EYES, (Reported) Entered as Reported by: LYNETTE EID on 08/29/19 0742 Cyclosporine (Restasis) 1 Each Droperette, 1 DROP OU Q12H, (Reported) Entered as Reported by: LYNETTE EID on 08/29/19 0742 Famotidine (Acid Gin Feeder (FAMOTIDINE)) 20 Mg Tablet, 40 MG PO HS, (Reported) Entered as Reported by: LYNETTE EID on 08/29/19 0812 Pantoprazole Sodium (Pantoprazole Sodium) 40 Mg Tablet.dr, 40 MG PO HS, (Reported) Entered as Reported by: DESTIN HARTMAN on 01/14/18 1455 Simvastatin (Simvastatin) 20 Mg Tablet, 20 MG PO HS, (Reported) Entered as Reported by: DESTIN HARTMAN on 01/14/18 5685 Review of Systems Review of Systems Constitutional: No chills, No fever EENTM: No blurred vision Respiratory: cough; No short of breath Cardiovascular: chest pain Gastrointestinal: No abdominal pain; diarrhea; No nausea, No vomiting Genitourinary: no symptoms reported Musculoskeletal: no symptoms reported Skin: no symptoms reported Psychiatric/Neurological: No Symptoms Reported Hematologic/Lymphatic: No Symptoms Reported Immunological/Allergic: no symptoms reported All Other Systems Reviewed Negative Unless Noted: Yes Past Ifvbsop-Ehsyer-Juesja Hx Patient Social History Tobacco Use?: No Smoking Status: Former Smoker Smokeless Tobacco Frequency: Current Everyday User Use of E-Cig and/or Vaping dev: No Use of E-Cig and/or Vaping Lane: Never a User Substance use?: No Alcohol Use?: No Pt feels they are or have been: No Immunizations Up To Date Tetanus Booster (TDap): Less than 5yrs Seasonal Allergies Seasonal Allergies: Yes Past Medical History Surgeries: Yes (BILAT KNEE SCOPE, EYE SURGERY) Coronary Stent, Gallbladder, Tonsillectomy Respiratory: No Currently Using CPAP: No Currently Using BIPAP: No 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) Coronary Artery Disease, High Cholesterol Neurological: No Reproductive Disorders: No Sexually Transmitted Disease: No HIV/AIDS: No Genitourinary: No Gastrointestinal: Yes Miles's Esophagus, Diverticulosis, Hiatal Hernia Musculoskeletal: No Chronic Back Pain Endocrine: No Cataract Cancer: No Psychosocial: No Integumentary: No Blood Disorders: Yes Adverse Reaction/Blood Tranf: No Family Medical History Cardiovascular disease 19 FATHER FH: lymphoma G8 SISTER Respiratory disorder 19 FATHER Physical Exam Vital Signs - First Documented 09/08/21 08:09 Temp 36.0 Pulse 102 Resp 17 B/P (MAP) 142/63 (89) O2 Delivery Room Air Capillary Refill : Less Than 3 Seconds Height: 6'3.00" Weight: 235lbs. 0.0oz. 106.900972mj; 29.00 BMI Method:Stated General Appearance: WD/WN, no apparent distress Eyes: Bilateral Eye Normal Inspection HEENT: PERRL/EOMI, normal ENT inspection, pharynx normal Neck: non-tender, full range of motion, supple, normal inspection Respiratory: chest non-tender, lungs clear, normal breath sounds, no respiratory distress, no accessory muscle use Cardiovascular: regular rate, rhythm, no edema, no murmur Gastrointestinal: normal bowel sounds, non tender, soft; No distended, No guard ing, No rebound Extremities: normal range of motion, non-tender, normal inspection, no pedal edema, no calf tenderness, normal capillary refill Neurologic/Psychiatric: no motor/sensory deficits, alert, normal mood/affect Skin: normal color, warm/dry Lymphatic: no adenopathy Progress/Results/Core Measures Suspected Sepsis SIRS Temperature: Pulse: 102 Respiratory Rate: 17 Laboratory Tests 09/08/21 08:45: White Blood Count 5.7 Blood Pressure 142 /63 Mean: 89 Laboratory Tests 09/08/21 08:45: Creatinine 1.18, INR Comment 1.1, Platelet Count 171, Total Bilirubin 1.3H Results/Orders Lab Results Laboratory Tests Test 09/08/21 08:27 09/08/21 08:45 Range/Units Influenza Type A Antigen NEGATIVE NEGATIVE Influenza Type B Antigen NEGATIVE NEGATIVE SARS-CoV-2 RNA (RT-PCR) Not Detected Negative White Blood Count 5.7 4.3-11.0 10^3/uL Red Blood Count 5.33 4.30-5.52 10^6/uL Hemoglobin 16.2 13.3-17.7 g/dL Hematocrit 47 40-54 % Mean Corpuscular Volume 89 80-99 fL Mean Corpuscular Hemoglobin 30 25-34 pg Mean Corpuscular Hemoglobin Concent 34 32-36 g/dL Red Cell Distribution Width 13.2 10.0-14.5 % Platelet Count 171 130-400 10^3/uL Mean Platelet Volume 9.7 9.0-12.2 fL Immature Granulocyte % (Auto) 0 % Neutrophils (%) (Auto) 62 42-75 % Lymphocytes (%) (Auto) 15 12-44 % Monocytes (%) (Auto) 20 H 0-12 % Eosinophils (%) (Auto) 2 0-10 % Basophils (%) (Auto) 1 0-10 % Neutrophils # (Auto) 3.6 1.8-7.8 10^3/uL Lymphocytes # (Auto) 0.9 L 1.0-4.0 10^3/uL Monocytes # (Auto) 1.1 H 0.0-1.0 10^3/uL Eosinophils # (Auto) 0.1 0.0-0.3 10^3/uL Basophils # (Auto) 0.0 0.0-0.1 10^3/uL Immature Granulocyte # (Auto) 0.0 0.0-0.1 10^3/uL Neutrophils % (Manual) 65 % Lymphocytes % (Manual) 14 % Monocytes % (Manual) 16 % Eosinophils % (Manual) 1 % Band Neutrophils 3 % Reactive Lymphocytes 1 % Blood Morphology Comment NORMAL Prothrombin Time 14.6 12.2-14.7 SEC INR Comment 1.1 0.8-1.4 Activated Partial Thromboplast Time 32 24-35 SEC Sodium Level 135 135-145 MMOL/L Potassium Level 4.0 3.6-5.0 MMOL/L Chloride Level 103 98-107 MMOL/L Carbon Dioxide Level 22 21-32 MMOL/L Anion Gap 10 5-14 MMOL/L Blood Urea Nitrogen 13 7-18 MG/DL Creatinine 1.18 0.60-1.30 MG/DL Estimat Glomerular Filtration Rate 66 BUN/Creatinine Ratio 11 Glucose Level 107 H 70-105 MG/DL Calcium Level 9.0 8.5-10.1 MG/DL Corrected Calcium 9.1 8.5-10.1 MG/DL Total Bilirubin 1.3 H 0.1-1.0 MG/DL Aspartate Amino Transf (AST/SGOT) 25 5-34 U/L Alanine Aminotransferase (ALT/SGPT) 24 0-55 U/L Alkaline Phosphatase 55 40-136 U/L Troponin I < 0.028 <0.028 NG/ML B-Type Natriuretic Peptide < 10.0 <100.0 PG/ML Total Protein 7.8 6.4-8.2 GM/DL Albumin 3.9 3.2-4.5 GM/DL My Orders Orders - SPENCER TERRAZAS MD Covid 19 Inhouse Test (09/08/21 08:31) Cbc With Automated Diff (09/08/21 08:31) Chest 1 View, Ap/Pa Only (09/08/21 08:31) Ekg Tracing (09/08/21 08:31) Comprehensive Metabolic Panel (09/08/21 08:31) Protime With Inr (09/08/21 08:31) Partial Thromboplastin Time (09/08/21 08:31) O2 (09/08/21 08:31) Monitor-Rhythm Ecg Trace Only (09/08/21 08:31) Ed Iv/Invasive Line Start (09/08/21 08:31) Bnp [place] (09/08/21 08:31) Troponin I Mary Lou (09/08/21 08:31) Aspirin Chewable Tablet (Baby Aspirin Ch (09/08/21 08:45) Influenza A & B Antigens (09/08/21 08:31) Manual Differential (09/08/21 08:45) Coronavirus Sars-Cov-2 So 2019 (09/08/21 08:27) Medications Given in ED Current Medications Medications Dose Ordered Sig/Harris Route Start Time Stop Time Status Last Admin Dose Admin Aspirin 324 mg ONCE ONCE PO 09/08/21 08:45 09/08/21 08:46 DC 09/08/21 08:40 324 MG Vital Signs/I&O 09/08/21 09/08/21 08:09 08:09 Temp 36.0 Pulse 102 Resp 17 B/P (MAP) 142/63 (89) O2 Delivery Room Air Room Air Capillary Refill : Less Than 3 Seconds Blood Pressure Mean: 89 Progress Note : Progress Note Well-appearing 71-year-old male with above history coming in due to mostly cough and URI type symptoms. ABCs were intact and vitals were stable on presentation. Physical exam reassuring with no focal abnormalities and once again he is well- appearing. EKG without any acute ischemic changes, although the pain in his chest does not really sound like ACS in nature. COVID and flu testing sent as well as basic labs and cardiac biomarkers. Chest x-ray also ordered. COVID and flu testing negative, cardiac biomarkers negative. Chest x-ray okay. He continues to be well-appearing. I believe he is stable for discharge with outpatient follow-up. He was sent home with strict return precautions ECG Initial ECG Impression Date: Sep 08, 2021 Initial ECG Impression Time: 08:28 Initial ECG Rate: 84 Initial ECG Rhythm: Normal Sinus Comment Narrow QRS, normal axis, no significant ST changes or T wave abnormalities Diagnostic Imaging Diagonstic Imaging: Xray Plain Films/CT/US/NM/MRI: chest Comments [facility]. [place], [place] NAME: LILLIAN DUKES REC#: [id number] PT STATUS: REG ER : 1950 PHYSICIAN: SPENCER TERRAZAS MD ADMIT DATE: 09/08/21/ER Draft Date of Exam:09/08/21 CHEST 1 VIEW, AP/PA ONLY INDICATION: Cough and chest wall pain. TIME OF EXAM: 8:50 AM Correlation is made with prior chest from 12/21/2019. FINDINGS: The heart size is normal. The pulmonary vascularity is unremarkable. The lungs are clear. No infiltrate, effusion or pneumothorax is detected. IMPRESSION: No acute cardiopulmonary process is detected. Dictated on workstation # [id number] Dict: 09/08/21 0852 Trans: 09/08/21 0853 [id number] Interpreted by: JLUIS QUEZADA MD Electronically signed by: Departure Impression Primary Impression: Upper respiratory infection Qualified Codes: J06.9 - Acute upper respiratory infection, unspecified Disposition: 01 HOME, SELF-CARE Condition: Stable Departure-Patient Inst. Decision time for Depature: 10:19 Patient Instructions: Cough, Adult (DC) Add. Discharge Instructions: Your flu and COVID test were negative. Take zzxh-wfi-fixbyef medicines. If your chest pain becomes worse or you became in severe short of breath then come back to the ER. SPENCER TERRAZAS MD Sep 08, 2021 08:56
[2021-09-08 09:13] LABS: INR 1.1 (0.8-1.4); PROTHROMBIN TIME PATIENT 14.6 SEC (12.2-14.7)
[2021-09-08 09:18] LABS: BAND NEUTROPHILS 3 %; EOSINOPHILS % (MANUAL) 1 %; LYMPHOCYTES % (MANUAL) 14 %; MONOCYTES % (MANUAL) 16 %; NEUTROPHILS % (MANUAL) 65 %; RBC MORPH NORMAL; REACTIVE LYMPHOCYTES 1 %
[2021-09-08 09:19] LABS: ALBUMIN 3.9 GM/DL (3.2-4.5); BILIRUBIN,TOTAL 1.3 MG/DL (0.1-1.0); CREATININE SERUM 1.18 MG/DL (0.60-1.30); TOTAL PROTEIN 7.8 GM/DL (6.4-8.2)
[2021-09-08 10:40] VITALS: BP 129/75
== END 2021-09-08 10:40 | disposition home or self-care (01) ==
LOC: EDUNIT# 07:53 → ER 07:58
DX: J06.9 Acute upper respiratory infection, unspecified (principal); I10 Essential (primary) hypertension; I25.10 Atherosclerotic heart disease of native coronary artery without angina pectoris; E78.5 Hyperlipidemia, unspecified; K21.9 Gastro-esophageal reflux disease without esophagitis; Z87.891 Personal history of nicotine dependence; Z95.5 Presence of coronary angioplasty implant and graft; Z79.82 Long term (current) use of aspirin; Z79.899 Other long term (current) drug therapy; Z20.822 Contact with and (suspected) exposure to COVID-19
CPT/HCPCS: 36415; 71045; 80053; 83880; 84484; 85007; 85027; 85610; 85730; 87635; 87636; 87804; 93005; 93041

== ENCOUNTER 2022-03-09 10:10 | Emergency (ER) | payer MEDICARE, OTHER ==
[~2022-03-09] VITALS: Ht 193 cm; Wt 108.8 kg
--- NOTE | 2022-03-09 11:00 | ED General ---
General Chief Complaint: Respiratory Problems Stated Complaint: COUGH - CONGESTION - CHILLS - BODY ACHES - SOA Nursing Triage Note: PT AMB TO RM 9 WITH CC SOA, WEAKNESS, COUGH, CHILLS, ONEILL, AND LH SINCE LAST NIGHT. PT DENIES N AND V. PT ABLE TO TALK IN FULL SENTENCES. Source of Information: Patient Exam Limitations: No Limitations History of Present Illness Date Seen by Provider: Mar 09, 2022 Time Seen by Provider: 10:54 Initial Comments Patient is a 71-year-old male who presents to the emergency room with a chief complaint of acute onset of persistent cough at about 830 last night. Feeling short of breath, generally weak, chills and generalized malaise persist this morning. He is not having chest pain. His cough is nonproductive. No vomiting or diarrhea. He is actually constipated. He denies black or bloody stools. No urinary complaints. No rashes joint pain or swelling. No earache or sore throat. No runny nose or congestion. 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 He also states he has not been wearing his mask. He is COVID vaccinated with a booster. Remote history of cardiac stent 10 years ago. Suffers with diverticulitis occasionally. Last bout was 6 months ago. All other review of systems reviewed and negative except as stated. Timing/Duration: 12 Hours Severity: Moderate Associated Systoms: Cough, Malaise, Weakness Allergies and Home Medications Allergies Coded Allergies: atenolol (Verified Allergy, Unknown, 02/05/09) guaifenesin (Verified Allergy, Unknown, 02/05/09) Patient Home Medication List Home Medication List Reviewed: Yes Aspirin (Aspir 81) 81 Mg Tablet.dr, 81 MG PO HS, (Reported) Entered as Reported by: DESTIN HARTMAN on 01/14/18 1455 Carboxymethyl/Gly/Poly80/Pf (Refresh Optive Cesar-3 Drops) 1 Each Droperette, 1 DROP OU Q3H PRN for DRY EYES, (Reported) Entered as Reported by: LYNETTE EID on 08/29/19 0742 Cyclosporine (Restasis) 1 Each Droperette, 1 DROP OU Q12H, (Reported) Entered as Reported by: LYNETTE EID on 08/29/19 0742 Famotidine (Acid Brake Press Operator (FAMOTIDINE)) 20 Mg Tablet, 40 MG PO HS, (Reported) Entered as Reported by: LYNETTE EID on 08/29/19 0812 Pantoprazole Sodium (Pantoprazole Sodium) 40 Mg Tablet.dr, 40 MG PO HS, (Reported) Entered as Reported by: DESTIN HARTMAN on 01/14/18 1455 Simvastatin (Simvastatin) 20 Mg Tablet, 20 MG PO HS, (Reported) Entered as Reported by: DESTIN HARTMAN on 01/14/18 1455 Review of Systems Review of Systems Constitutional: see HPI EENTM: no symptoms reported Respiratory: cough Cardiovascular: no symptoms reported Gastrointestinal: abdominal pain Genitourinary: no symptoms reported Musculoskeletal: no symptoms reported Skin: no symptoms reported Psychiatric/Neurological: Headache (mild) All Other Systems Reviewed Negative Unless Noted: Yes Past Nmiqmxb-Dpjqdl-Ccgzlu Hx Patient Social History Tobacco Use?: Yes Smokeless Tobacco Frequency: Current Everyday User Substance use?: No Alcohol Use?: No Pt feels they are or have been: No Immunizations Up To Date Tetanus Booster (TDap): Less than 5yrs First/Initial COVID19 Vaccinat: 09/29 Second COVID19 Vaccination Jose: 10/27 Third COVID19 Vaccination Date: 09/29 Seasonal Allergies Seasonal Allergies: Yes Past Medical History Surgery/Hospitalization HX: DIVERTICULITIS, GERD Surgeries: Yes (BILAT KNEE SCOPE, EYE SURGERY) Coronary Stent, Gallbladder, Tonsillectomy Respiratory: No Currently Using CPAP: No Currently Using BIPAP: No 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) Coronary Artery Disease, High Cholesterol Neurological: No Reproductive Disorders: No Sexually Transmitted Disease: No HIV/AIDS: No Genitourinary: No Gastrointestinal: Yes Miles's Esophagus, Diverticulosis, Hiatal Hernia Musculoskeletal: No Chronic Back Pain Endocrine: No Cataract Cancer: No Psychosocial: No Integumentary: No Blood Disorders: Yes Adverse Reaction/Blood Tranf: No Family Medical History Cardiovascular disease 19 FATHER FH: lymphoma G8 SISTER Respiratory disorder 19 FATHER Physical Exam Vital Signs Vital Signs - First Documented Capillary Refill : Less Than 3 Seconds Height, Weight, BMI Height: 6'3.00" Weight: 235lbs. 0.0oz. 106.896370tj; 29.00 BMI Method:Stated General Appearance: No Apparent Distress, WD/WN Eyes: Bilateral Eye Normal Inspection, Bilateral Eye PERRL, Bilateral Eye EOMI HEENT: PERRL/EOMI, TMs Normal, Pharynx Normal, Moist Mucous Membranes Neck: Normal Inspection, Supple Respiratory: No Accessory Muscle Use, No Respiratory Distress, Wheezing (Slight expiratory wheeze noted in the upper lung yuen posteriorly, bilaterally. No increased work of breathing/respiratory distress. Oxygen saturations 96% on room air.) Cardiovascular: Regular Rate, Rhythm, Normal Peripheral Pulses Gastrointestinal: Soft, Tenderness (mild lower abdominal tenderness) Extremity: Normal Capillary Refill, Normal Inspection, Normal Range of Motion, Non Tender, No Calf Tenderness, No Pedal Edema Neurologic/Psychiatric: Alert, Oriented x3, No Motor/Sensory Deficits Skin: Normal Color, Warm/Dry Progress/Results/Core Measures Suspected Sepsis SIRS Temperature: Pulse: 101 Respiratory Rate: 14 Blood Pressure 114 /76 Mean: 89 Results/Orders Lab Results Laboratory Tests Test 03/09/22 10:20 Range/Units My Orders Orders - RUDY COOMBS MD Covid 19 Inhouse Test (03/09/22 10:32) Isolation Central Supply Req (03/09/22 10:32) Vital Signs/I&O 03/09/22 03/09/22 10:16 10:16 Temp 36.8 Pulse 101 Resp 14 B/P (MAP) 114/76 (89) Pulse Ox 95 O2 Delivery Room Air Room Air Capillary Refill : Less Than 3 Seconds Blood Pressure Mean: 89 Progress Note : Time: 11:06 Progress Note Lab called and notified that the patient's COVID test is positive. I discussed with him treatment, either paxlovid or the monoclonal antibody infusion. I advised him that these medications are still "emergency use authorization". We discussed the risks and benefits of these medications. He would like to proceed with the oral medication. He will be provided with the Dosepak here in the emergency department. His vital signs are stable. He is drinking water in the room. No concerns for pneumonia, sepsis. No clinical or objective findings to warrant extensive testing from the emergency department. All questions are sought and answered. Departure Impression Primary Impression: COVID-19 Disposition: 01 HOME, SELF-CARE Condition: Stable Departure-Patient Inst. Decision time for Depature: 11:10 Referrals: ZION ZHANG MD (PCP/Family) Primary Care Physician Patient Instructions: COVID-19 (DC) Add. Discharge Instructions: We have given you the oral medication to treat COVID-19, PAXLOVID. Please take this medication as directed. Monitor your symptoms at home for worsening. If you develop increasing shortness of breath or cough or high fevers please come back to the emergency room for reevaluation. You will need to quarantine at home for 5 days starting yesterday with a mask. Then out in the community with a mask for an additional 5 days. Follow-up with your primary care provider in 2 weeks RUDY COOMBS MD Mar 09, 2022 11:00
[2022-03-09] MEDS ORDERED: RX-NIRMATRELVIR/RITONAVIR (PAXLOVID) #30 TABS PO SCH (11:15)
[2022-03-09 11:20] VITALS: BP 111/74
[2022-03-09] MEDS ORDERED: ONDA4TAB11 PO (19:21)
== END 2022-03-09 11:20 | disposition home or self-care (01) ==
LOC: EDUNIT# 10:10 → ER 10:11
DX: U07.1 COVID-19 (principal); F17.200 Nicotine dependence, unspecified, uncomplicated
CPT/HCPCS: 87636

== ENCOUNTER 2022-03-09 17:58 | Emergency (ER) | payer MEDICARE, OTHER ==
[2022-03-09] MEDS ORDERED: NS IV 1000 ML 1,000 ML IV STA (18:26)
[2022-03-09] MEDS ORDERED: ONDANSETRON 4 MG/2 ML (SDV) Z0FRAN IVP ONE (18:30)
--- NOTE | 2022-03-09 18:31 | ED Abdominal Pain ---
General Chief Complaint: Abdominal/GI Problems Stated Complaint: COVID + VOMITING Source of Information: Patient Exam Limitations: No Limitations History of Present Illness Date Seen by Provider: Mar 09, 2022 Time Seen by Provider: 18:28 Initial Comments Patient is a 71-year-old male with a history of coronary artery disease who presents the ED for vomiting. Vomiting started 2 hours ago. Patient states he was seen here earlier this morning diagnosed with COVID was discharged with paxlovid. Patient states he took a dose this morning went to bed fell asleep woke up 2 hours ago started vomiting 12+ episodes with bile. No hematemesis. Had some burning in her chest after vomiting but that has improved. Has a mild dry nonproductive cough. Patient states he feels dehydrated and requesting something for the nausea. Denies of any current chest pain, headache, dizziness, visual changes, abdominal pain, dysuria, hematuria, shortness of breath, visual disturbances, unilateral muscle weakness or sensory changes. Patient reports some weakness and fatigue. Allergies and Home Medications Allergies Coded Allergies: atenolol (Verified Allergy, Unknown, 02/05/09) guaifenesin (Verified Allergy, Unknown, 02/05/09) Patient Home Medication List Home Medication List Reviewed: Yes Aspirin (Aspir 81) 81 Mg Tablet.dr, 81 MG PO HS, (Reported) Entered as Reported by: DESTIN HARTMAN on 01/14/18 1455 Carboxymethyl/Gly/Poly80/Pf (Refresh Optive Cesar-3 Drops) 1 Each Droperette, 1 DROP OU Q3H PRN for DRY EYES, (Reported) Entered as Reported by: LYNETTE EID on 08/29/19 0742 Cyclosporine (Restasis) 1 Each Droperette, 1 DROP OU Q12H, (Reported) Entered as Reported by: LYNETTE EID on 08/29/19 0742 Famotidine (Acid Forensics Team Director (FAMOTIDINE)) 20 Mg Tablet, 40 MG PO HS, (Reported) Entered as Reported by: LYNETTE EID on 08/29/19 0812 Ondansetron (Ondansetron Odt) 4 Mg Tab.rapdis, 4 MG PO Q4H Prescribed by: PB COLON on 03/09/22 192 Pantoprazole Sodium (Pantoprazole Sodium) 40 Mg Tablet.dr, 40 MG PO HS, (Reported) Entered as Reported by: DESTIN HARTMAN on 01/14/18 145 Simvastatin (Simvastatin) 20 Mg Tablet, 20 MG PO HS, (Reported) Entered as Reported by: DESTIN HARTMAN on 01/14/18 1455 Review of Systems Review of Systems Constitutional: chills; No diaphoresis; malaise, weakness EENTM: No Blurred Vision, No Double Vision, No Eye Pain Respiratory: Cough; Denies Shortness of Air, Denies SOA With Exertion, Denies SOA at Rest Cardiovascular: Denies Chest Pain, Denies Edema, Denies Irregular Heart Rate Gastrointestinal: Denies Abdominal Pain, Denies Diarrhea; Nausea, Vomiting Genitourinary: Denies Burning, Denies Discharge Musculoskeletal: No back pain, No joint pain Skin: No change in color, No change in hair/nails Psychiatric/Neurological: Denies Depressed All Other Systems Reviewed Negative Unless Noted: Yes Past Ftbrquo-Kynifw-Izliud Hx Immunizations Up To Date Tetanus Booster (TDap): Less than 5yrs First/Initial COVID19 Vaccinat: 09/29 Second COVID19 Vaccination Jose: 10/27 Third COVID19 Vaccination Date: 09/29 Seasonal Allergies Seasonal Allergies: Yes Past Medical History Surgery/Hospitalization HX: DIVERTICULITIS, GERD STENT Surgeries: Yes (BILAT KNEE SCOPE, EYE SURGERY) Coronary Stent, Gallbladder, Tonsillectomy Respiratory: No Currently Using CPAP: No Currently Using BIPAP: No 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) Coronary Artery Disease, High Cholesterol Neurological: No Reproductive Disorders: No Sexually Transmitted Disease: No HIV/AIDS: No Genitourinary: No Gastrointestinal: Yes Miles's Esophagus, Diverticulosis, Hiatal Hernia Musculoskeletal: No Chronic Back Pain Endocrine: No Cataract Cancer: No Psychosocial: No Integumentary: No Blood Disorders: Yes Adverse Reaction/Blood Tranf: No Family Medical History Cardiovascular disease 19 FATHER FH: lymphoma G8 SISTER Respiratory disorder 19 FATHER Physical Exam Vital Signs Vital Signs - First Documented 03/09/22 18:19 Temp 37.0 Pulse 94 Resp 16 B/P (MAP) 137/71 (93) Capillary Refill : Height/Weight/BMI Height: 6'3.00" Weight: 235lbs. 0.0oz. 106.460001da; 29.00 BMI Method:Stated General Appearance: WD/WN, no apparent distress HEENT: PERRL/EOMI, normal ENT inspection, TMs normal, pharynx normal Neck: non-tender, full range of motion, supple, normal inspection Respiratory: chest non-tender, lungs clear, normal breath sounds, no respiratory distress, no accessory muscle use Cardiovascular: regular rate, rhythm, no edema, no gallop, no JVD Gastrointestinal: normal bowel sounds, non tender, soft, no organomegaly, no pulsatile mass Extremities: normal range of motion, non-tender, normal inspection, no pedal edema Back: normal inspection, no CVA tenderness, no vertebral tenderness Neurologic/Psychiatric: 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, no motor/sensory deficits, alert, normal mood/affect, oriented x 3 Skin: normal color, warm/dry Progress/Results/Core Measures Results/Orders Lab Results Laboratory Tests Test 03/09/22 18:37 Range/Units White Blood Count 4.5 4.3-11.0 10^3/uL Red Blood Count 4.82 4.30-5.52 10^6/uL Hemoglobin 14.9 13.3-17.7 g/dL Hematocrit 45 40-54 % Mean Corpuscular Volume 93 80-99 fL Mean Corpuscular Hemoglobin 31 25-34 pg Mean Corpuscular Hemoglobin Concent 33 32-36 g/dL Red Cell Distribution Width 13.2 10.0-14.5 % Platelet Count 118 L 130-400 10^3/uL Mean Platelet Volume 10.0 9.0-12.2 fL Immature Granulocyte % (Auto) 0 % Neutrophils (%) (Auto) 61 42-75 % Lymphocytes (%) (Auto) 11 L 12-44 % Monocytes (%) (Auto) 26 H 0-12 % Eosinophils (%) (Auto) 1 0-10 % Basophils (%) (Auto) 1 0-10 % Neutrophils # (Auto) 2.8 1.8-7.8 10^3/uL Lymphocytes # (Auto) 0.5 L 1.0-4.0 10^3/uL Monocytes # (Auto) 1.2 H 0.0-1.0 10^3/uL Eosinophils # (Auto) 0.0 0.0-0.3 10^3/uL Basophils # (Auto) 0.0 0.0-0.1 10^3/uL Immature Granulocyte # (Auto) 0.0 0.0-0.1 10^3/uL Neutrophils % (Manual) 60 % Lymphocytes % (Manual) 11 % Monocytes % (Manual) 27 % Eosinophils % (Manual) 2 % Basophils % (Manual) 0 % Band Neutrophils 0 % Percent Immature Platelet Fraction 2.2 0.0-7.6 % Blood Morphology Comment NORMAL Sodium Level 136 135-145 MMOL/L Potassium Level 4.4 3.6-5.0 MMOL/L Chloride Level 103 98-107 MMOL/L Carbon Dioxide Level 21 21-32 MMOL/L Anion Gap 12 5-14 MMOL/L Blood Urea Nitrogen 13 7-18 MG/DL Creatinine 1.22 0.60-1.30 MG/DL Estimat Glomerular Filtration Rate 63 BUN/Creatinine Ratio 11 Glucose Level 110 H 70-105 MG/DL Calcium Level 8.5 8.5-10.1 MG/DL Corrected Calcium 8.7 8.5-10.1 MG/DL Total Bilirubin 0.9 0.1-1.0 MG/DL Aspartate Amino Transf (AST/SGOT) 38 H 5-34 U/L Alanine Aminotransferase (ALT/SGPT) 40 0-55 U/L Alkaline Phosphatase 51 40-136 U/L Total Protein 7.1 6.4-8.2 GM/DL Albumin 3.7 3.2-4.5 GM/DL My Orders Orders - SPENCER ROMERO Cbc With Automated Diff (03/09/22 18:26) Comprehensive Metabolic Panel (03/09/22 18:26) Ns Iv 1000 Ml (Sodium Chloride 0.9%) (03/09/22 18:26) Ondansetron Injection (Zofran Injectio (03/09/22 18:30) Manual Differential (03/09/22 18:37) Medications Given in ED Current Medications Medications Dose Ordered Sig/Harris Route Start Time Stop Time Status Last Admin Dose Admin Ondansetron HCl 4 mg ONCE ONCE IVP 03/09/22 18:30 03/09/22 18:31 DC 03/09/22 18:43 4 MG Vital Signs/I&O 03/09/22 18:19 Temp 37.0 Pulse 94 Resp 16 B/P (MAP) 137/71 (93) Departure Communication (PCP) Patient was seen here earlier today diagnosed with COVID. Took his Paxilovid this morning and took a nap. Vomited 12 episodes reports bile without any he matemesis over the past 2 hours. No vomiting here. Was given IV Zofran and liter of fluid. Lab work was otherwise unremarkable. Patient resting comfortably. He reports a dry cough without any chest pain currently. Had some burning in chest after the vomiting but that has improved. Denies of any visual changes, headache, abdominal pain, dysuria, hematuria. Patient was able to urinate here. Patient feels much better at this time after the fluids and IV Zofran. Tolerating p.o. fluids. Will discharge with Zofran for a few days. Discussed with patient this may be due to COVID or possible medication. If he takes the medication tomorrow and starts to vomit discussed stopping the medication and may benefit with monoclonal antibody infusion at that time. if any worsening symptoms return back to ED for further evaluation Impression Primary Impression: COVID-19 Additional Impression: Nausea and vomiting Disposition: 01 HOME, SELF-CARE Condition: Stable Departure-Patient Inst. Decision time for Depature: 19:21 Referrals: ZION ZHANG MD (PCP/Family) Primary Care Physician Patient Instructions: COVID-19 ED Scripts Ondansetron (Ondansetron Odt) 4 Mg Tab.rapdis 4 MG PO Q4H, #8 TAB Prov: SPENCER ROMERO 03/09/22 SPENCER ROMERO Mar 09, 2022 18:31
[2022-03-09 18:42] LABS: EOSINOPHILS % (AUTO) 1 % (0-10); HEMOGLOBIN 14.9 g/dL (13.3-17.7)
[2022-03-09 18:44] LABS: BASOPHILS % (AUTO) 1 % (0-10); HEMATOCRIT 45 % (40-54); LYMPHOCYTES # (AUTO) 0.5 10^3/uL (1.0-4.0); LYMPHOCYTES % (AUTO) 11 % (12-44); MEAN CORPUSCULAR HEMOGLOBIN 31 pg (25-34); MEAN CORPUSCULAR HGB CONC 33 g/dL (32-36); MEAN CORPUSCULAR VOLUME 93 fL (80-99); MONOCYTES # (AUTO) 1.2 10^3/uL (0.0-1.0); MONOCYTES % (AUTO) 26 % (0-12); NEUTROPHILS # (AUTO) 2.8 10^3/uL (1.8-7.8); NEUTROPHILS % (AUTO) 61 % (42-75); WHITE BLOOD COUNT 4.5 10^3/uL (4.3-11.0)
[2022-03-09 18:46] LABS: PLATELET COUNT 118 10^3/uL (130-400)
[2022-03-09 18:53] LABS: ALBUMIN 3.7 GM/DL (3.2-4.5); POTASSIUM 4.4 MMOL/L (3.6-5.0)
[2022-03-09 18:54] LABS: CALCIUM 8.5 MG/DL (8.5-10.1)
[2022-03-09 18:55] LABS: TOTAL PROTEIN 7.1 GM/DL (6.4-8.2)
[2022-03-09 18:57] LABS: BILIRUBIN,TOTAL 0.9 MG/DL (0.1-1.0)
[2022-03-09 18:59] LABS: CREATININE SERUM 1.22 MG/DL (0.60-1.30)
[2022-03-09 19:10] LABS: BAND NEUTROPHILS 0 %; BASOPHILS % (MANUAL) 0 %; EOSINOPHILS % (MANUAL) 2 %; LYMPHOCYTES % (MANUAL) 11 %; MONOCYTES % (MANUAL) 27 %; NEUTROPHILS % (MANUAL) 60 %; RBC MORPH NORMAL
[2022-03-09] MEDS ORDERED: ONDA4TAB11 PO (19:21)
[2022-03-09 19:54] VITALS: BP 113/85
== END 2022-03-09 19:56 | disposition home or self-care (01) ==
LOC: EDUNIT# 17:58 → ER 18:01
DX: U07.1 COVID-19 (principal); R11.2 Nausea with vomiting, unspecified; Z73.0 Burn-out
CPT/HCPCS: 36415; 80053; 85007; 85027

== ENCOUNTER → 2022-09-21 | Outpatient (CLI) | payer MEDICARE, OTHER ==
[~2022-09-21] MED LIST changes: +ONDA4TAB11 PO
== END ==
LOC: CARD 14:08
PROVIDERS: ATTEND Internal Medicine Cardiovascular Disease
DX: R06.09 Other forms of dyspnea (principal)
CPT/HCPCS: 93306

== ENCOUNTER → 2022-10-27 | Outpatient (CLI) | payer MEDICARE, OTHER ==
[~2022-10-27] VITALS: Ht 193 cm; Wt 104.0 kg
[~2022-10-27] MED LIST changes: +REGADENOSON 0.4 MG/5 ML SYR (LEXISCAN) IV ONE
[2022-10-27] MEDS: CATHETER FLUSH 10 ML SYR IVP PRN ×2 (07:40→09:12)
[2022-10-27 09:07] VITALS: BP 114/68
--- NOTE | 2022-10-30 15:26 | STRESS TEST ---
DATE OF SERVICE: 10/27/2022 RESTING AND POST REGADENOSON TECHNETIUM-99M TETROFOSMIN SPECT CT IMAGING ORDERING PHYSICIAN: Dr. Velez. PRIMARY PHYSICIAN: Dr. Berry. CLINICAL DIAGNOSIS: Coronary artery disease. Baseline images were carried out after injection of 10.87 mCi technetium-99m tetrofosmin. This was followed by 0.4 mg regadenoson and 31 mCi technetium-99m tetrofosmin for stress imaging. The electrocardiogram showed sinus rhythm at baseline. Did not change significantly with regadenoson infusion. A few isolated premature ventricular contractions were seen. Review of images at rest and following stress does not indicate any distinct perfusion defects consistent with significant myocardial ischemia or infarction. Gated images show normal global left ventricular systolic function with normal regional wall motion. Left ventricular ejection fraction is calculated to be 62%. CONCLUSIONS: 1. No evidence of any significant myocardial ischemia or infarction on this study. 2. Normal regional wall motions. 3. Normal global left ventricular systolic function with a calculated ejection fraction of 62%. Job ID: [id number] DocumentID: [id number] Dictated Date: 10/30/2022 14:49:21 Group Home Manager Date: 10/30/2022 15:24:00 Dictated By: DELFINO VELEZ MD; CARLOS ENRIQUE; FACP; FACC;
== END ==
LOC: CARD 07:23
PROVIDERS: ATTEND Internal Medicine Cardiovascular Disease
DX: I25.10 Atherosclerotic heart disease of native coronary artery without angina pectoris (principal)
CPT/HCPCS: 78452; 93017; A9502

== ENCOUNTER 2022-11-24 12:23 | Outpatient (CLI) | payer MEDICARE, OTHER ==
[~2022-11-24 12:23] MED LIST changes: -REGADENOSON 0.4 MG/5 ML SYR (LEXISCAN) IV ONE
== END 2022-11-24 13:05 ==
LOC: SLEEP 12:23
PROVIDERS: ATTEND Nurse Practitioner
DX: G47.33 Obstructive sleep apnea (adult) (pediatric) (principal); G47.10 Hypersomnia, unspecified; R51.9 Headache, unspecified
CPT/HCPCS: G0399